=== PATIENT | male | born 1970 | race Caucasian/White ===

== ENCOUNTER 2016-07-13 12:11 | Emergency (ER) | payer BC ==
[~2016-07-13] VITALS: Ht 180.3 cm; Wt 93.7 kg
[2016-07-13 12:15] VITALS: TEMP 36.7; Ht 180.3 cm; Wt 93.7 kg
[2016-07-13] MEDS ORDERED: SODIUM CHLORIDE 0.9% 1000ML 1,000 ML IV STA (12:53)
[2016-07-13 13:01] LABS: BASO % 0.2 %; BASO ABS # 0.02 K/uL (0-0.2); COMPLETE YES; EOS % 1.4 %; HEMATOCRIT 44.1 % (42-52); IG% 0.4 %; LYMPH % 16.8 %; LYMPH ABS # 2.23 K/uL (1.2-3.4); MEAN CELL VOLUME 90.9 fL (80-100); MEAN CORPUSCULAR HEMOGLOBIN 32.8 pg (25-34); MEAN CORPUSCULAR HGB CONC 36.1 g/dl (32-36); MEAN PLATELET VOLUME 9.5 fL (7.4-10.4); MONO % 7.4 %; NEUT % 73.8 %; PLATELET COUNT 289 K/uL (130-400); RED BLOOD COUNT 4.85 M/uL (4.7-6.1); WHITE BLOOD COUNT 13.24 K/uL (4.8-10.8)
[2016-07-13 13:11] LABS: BUN/CREATININE RATIO 16.6 (10-20); CALCIUM 9.1 mg/dl (8.5-10.1); CREATININE 0.82 mg/dl (0.60-1.40); POTASSIUM 4.1 mmol/L (3.5-5.1)
[2016-07-13 13:19] LABS: ALB/GLOB RATIO 1.1 (0.9-2)
[2016-07-13 13:29] VITALS: O2SAT 97
[2016-07-13 13:39] LABS: URINE APPEARANCE CLEAR (CLEAR); URINE BILIRUBIN NEG (NEG); URINE COLOR YELLOW; URINE NITRITE NEG (NEG); UROBILINOGEN NEG (NEG); ZZUR CULT IF INDIC CLEAN CATCH NO
[2016-07-13 13:42] LABS: MANUAL MICROSCOPIC REQUIRED? NO; REVIEW REQ? NO
[2016-07-13] MEDS ORDERED: OPTIRAY 320 IV PRN (16:30)
--- NOTE | 2016-07-13 16:51 | DIAGNOSTIC IMAGING REPORT ---
ABDOMEN AND PELVIS CT WITH IV AND ORAL CONTRAST CT DOSE: 899.59 mGycm HISTORY: Lower abdominal pain, urinary symptoms TECHNIQUE: Multiaxial CT images of the abdomen and pelvis were performed following the use of intravenous and oral contrast. COMPARISON STUDY: None. FINDINGS: Mild to moderate thickening within the proximal sigmoid colon with associated pericolonic fat stranding. This is consistent with acute diverticulitis. No perforation or abscess. Slightly bulbous appendix which is gas filled. No periappendiceal fat stranding to suggest acute appendicitis. The appendix measures up to 9 mm in diameter. The bladder is unremarkable. The lung bases are clear. No pneumoperitoneum. No pneumatosis. No suspicious lytic or blastic osseous lesions. The liver, spleen, adrenal glands, pancreas, and gallbladder are unremarkable. No hydronephrosis. A 9 mm hypodense lesion within the left kidney is too small to characterize. No retroperitoneal lymphadenopathy. No evidence for bowel obstruction. IMPRESSION: 1. Acute sigmoid diverticulitis. No perforation or abscess at this time. 2. Slightly bulbous appendix which is gas filled. No periappendiceal fat stranding to suggest acute appendicitis. Electronically signed by: Kyle Schofield M.D. 07/13/2016 4:49 PM Dictated Date/Time: 07/13/2016 4:45 PM
[2016-07-13] MEDS ORDERED: AMOXICILLIN/CLAVULANATE TAB 875 MG TAB PO STA (17:36)
[2016-07-13] MEDS ORDERED: AMOX875T PO (17:38)
[2016-07-13 17:42] VITALS: BP 149/79; PULSE 63; O2SAT 98
--- NOTE | 2016-07-13 17:42 | EMERGENCY ROOM VISIT NOTE ---
History First contact with patient: 12:34 Chief Complaint: ABDOMINAL PAIN Stated Complaint: LOWER ABDOMINAL PAIN Nursing Triage Summary: Pt c/o low mid abdominal pain intermittently x 3 weeks but has been constant the last 4 days. Urinary symptoms including urgency and frequency and pain. Pt denies n/v/d/constipation but states he has been having BM like he should be. History of Present Illness The patient is a 46 year old male who presents to the Emergency Room via private vehicle with complaints of "lower abdominal pain". The patient states that he has had 4 weeks of suprapubic abdominal pain that comes and goes, and is off and on the left side. He notes the pain is worse with sitting. He notes that he is also been urinating more frequently and urgently. He also notes pain in the abdomen with urination. He notes that he did have diarrhea earlier in the week, but has subsided slightly. He notes that the pain persists. His bowel movements are still slightly irregular. He has never had this before. He rates the pain as a 3-4/10. He notes that the pain will come in waves. He denies any blood in the urine, fevers, chills, nausea, vomiting, chest pain, shortness of breath. He notes that his urine appears to be cloudy. He denies chance of STD or STI. He notes that he is in a monogamous relationship with the same female for many years. He denies any rectal bleeding. Review of Systems A complete 10-point Review of Systems was discussed with the patient, with pertinent positives and negatives listed in the History of Present Illness. All remaining Review of Systems questions can be considered negative unless otherwise specified. Past Medical/Surgical History Migraine headaches, allergies, skin problems, bronchitis, pneumonia, urinary problems Family History Heart disease, cancer Social History Smoking Status: Current Every Day Smoker Housing Status: lives with family Social History: Patient is currently employed, and admits to tobacco and alcohol use. Current/Historical Medications Scheduled Amoxicillin & Pot Clavulanate (Augmentin 875-125 mg), 1 TAB PO BID Allergies Coded Allergies: BEE STING (Unverified Allergy, Unknown, ., 07/13/16) Physical Exam Vital Signs Date Time Temp Pulse Resp B/P Pulse Ox O2 Delivery O2 Flow Rate FiO2 07/13/16 17:42 63 18 149/79 98 Room Air 07/13/16 16:59 74 17 117/69 99 Room Air 07/13/16 15:31 69 16 142/98 98 Room Air 07/13/16 14:53 73 18 136/83 96 Room Air 07/13/16 13:40 78 18 121/41 97 Room Air 07/13/16 13:29 97 Room Air 07/13/16 12:15 36.7 100 18 130/91 97 Room Air Pain Rating (0-10): 4.0 Physical Exam VITAL SIGNS - Vital signs and nursing notes were reviewed. Patient is afebrile , normotensive, so tachycardic at a rate of 100 bpm and is saturating well on room air 97%. GENERAL -46-year-old male appearing his stated age who is in no acute distress. Communicates well with provider and answers questions appropriately. SKIN - Without rashes. No petechial rashes. HEAD - NC/AT. LUNGS - Chest wall symmetric without accessory muscle use, intercostals retractions, or central cyanosis. Normal vesicular breath sounds CTA B/L. No wheezes, rales, or rhonchi appreciated. CARDIAC - RRR with S1/S2. No murmur, rubs, or gallops appreciated. ABDOMEN - Abdominal contour without pulsations or visible masses. BS normoactive all four quadrants. There is left lower quadrant and suprapubic tenderness. Tenderness is most appreciable on the left lower quadrant to suprapubic region. No palpable masses, hepatosplenomegaly, or ascites noted. : With patient consent, genitalia exam was performed. Scrotum and testes are unremarkable. No evidence of hernia. Medical Decision & Procedures ER Provider Diagnostic Interpretation: ABDOMEN AND PELVIS CT WITH IV AND ORAL CONTRAST CT DOSE: 899.59 mGycm HISTORY: Lower abdominal pain, urinary symptoms TECHNIQUE: Multiaxial CT images of the abdomen and pelvis were performed following the use of intravenous and oral contrast. COMPARISON STUDY: None. FINDINGS: Mild to moderate thickening within the proximal sigmoid colon with associated pericolonic fat stranding. This is consistent with acute diverticulitis. No perforation or abscess. Slightly bulbous appendix which is gas filled. No periappendiceal fat stranding to suggest acute appendicitis. The appendix measures up to 9 mm in diameter. The bladder is unremarkable. The lung bases are clear. No pneumoperitoneum. No pneumatosis. No suspicious lytic or blastic osseous lesions. The liver, spleen, adrenal glands, pancreas, and gallbladder are unremarkable. No hydronephrosis. A 9 mm hypodense lesion within the left kidney is too small to characterize. No retroperitoneal lymphadenopathy. No evidence for bowel obstruction. IMPRESSION: 1. Acute sigmoid diverticulitis. No perforation or abscess at this time. 2. Slightly bulbous appendix which is gas filled. No periappendiceal fat stranding to suggest acute appendicitis. Electronically signed by: Kyle Schofield M.D. 07/13/2016 4:49 PM Dictated Date/Time: 07/13/2016 4:45 PM Laboratory Results 07/13/16 12:30 Red Blood Count 4.85, Mean Corpuscular Volume 90.9, Mean Corpuscular Hemoglobin 32.8, Mean Corpuscular Hemoglobin Concent 36.1, Mean Platelet Volume 9.5, Neutrophils (%) (Auto) 73.8, Lymphocytes (%) (Auto) 16.8, Monocytes (%) (Auto) 7.4, Eosinophils (%) (Auto) 1.4, Basophils (%) (Auto) 0.2, Neutrophils # (Auto) 9.77, Lymphocytes # (Auto) 2.23, Monocytes # (Auto) 0.98, Eosinophils # (Auto) 0.19, Basophils # (Auto) 0.02 07/13/16 12:30 Test 07/13/16 12:30 07/13/16 12:45 07/13/16 13:20 White Blood Count 13.24 K/uL (4.8-10.8) Red Blood Count 4.85 M/uL (4.7-6.1) Hemoglobin 15.9 g/dL (14.0-18.0) Hematocrit 44.1 % (42-52) Mean Corpuscular Volume 90.9 fL (80-100) Mean Corpuscular Hemoglobin 32.8 pg (25-34) Mean Corpuscular Hemoglobin Concent 36.1 g/dl (32-36) Platelet Count 289 K/uL (130-400) Mean Platelet Volume 9.5 fL (7.4-10.4) Neutrophils (%) (Auto) 73.8 % Lymphocytes (%) (Auto) 16.8 % Monocytes (%) (Auto) 7.4 % Eosinophils (%) (Auto) 1.4 % Basophils (%) (Auto) 0.2 % Neutrophils # (Auto) 9.77 K/uL (1.4-6.5) Lymphocytes # (Auto) 2.23 K/uL (1.2-3.4) Monocytes # (Auto) 0.98 K/uL (0.11-0.59) Eosinophils # (Auto) 0.19 K/uL (0-0.5) Basophils # (Auto) 0.02 K/uL (0-0.2) RDW Standard Deviation 43.1 fL (36.4-46.3) RDW Coefficient of Variation 13.1 % (11.5-14.5) Immature Granulocyte % (Auto) 0.4 % Immature Granulocyte # (Auto) 0.05 K/uL (0.00-0.02) Anion Gap 7.0 mmol/L (3-11) Est Creatinine Clear Calc Drug Dose 134.4 ml/min Estimated GFR () 124.6 Estimated GFR (Non- 107.5 BUN/Creatinine Ratio 16.6 (10-20) Calcium Level 9.1 mg/dl (8.5-10.1) Total Bilirubin 0.6 mg/dl (0.2-1) Aspartate Amino Transf (AST/SGOT) 17 U/L (15-37) Alanine Aminotransferase (ALT/SGPT) 44 U/L (12-78) Alkaline Phosphatase 79 U/L (45-117) Total Protein 7.7 gm/dl (6.4-8.2) Albumin 4.1 gm/dl (3.4-5.0) Globulin 3.6 gm/dl (2.5-4.0) Albumin/Globulin Ratio 1.1 (0.9-2) Lipase 183 U/L (73-393) Urine Color YELLOW Urine Appearance CLEAR (CLEAR) Urine pH 5.0 (4.5-7.5) Urine Specific [place] 1.020 (1.000-1.030) Urine Protein NEG (NEG) Urine Glucose (UA) NEG (NEG) Urine Ketones NEG (NEG) Urine Occult Blood NEG (NEG) Urine Nitrite NEG (NEG) Urine Bilirubin NEG (NEG) Urine Urobilinogen NEG (NEG) Urine Leukocyte Esterase NEG (NEG) Medications Administered Medications (Trade) Dose Ordered Sig/Glory Route Start Time Stop Time Status Last Admin Dose Admin Sodium Chloride (Nss 1000ml) 1,000 ml @ 200 mls/hr Q5H STAT IV 07/13/16 12:53 07/13/16 17:52 DC 07/13/16 13:19 200 MLS/HR Amoxicillin/ Clavulanate Potassium (Augmentin Tab) 875 mg ONE STAT PO 07/13/16 17:36 07/13/16 17:37 DC 07/13/16 17:48 875 MG Medical Decision Patient was seen and evaluated as above. He presents to us with suprapubic abdominal pain, urinary frequency and urgency with cloudy urine. Examination reveals suprapubic tenderness and left lower quadrant tenderness. Genitalia exam was unremarkable. There is concern for intra-abdominal etiologies therefore a CT scan of the abdomen and pelvis with IV and oral contrast were obtained. He requested nothing for pain. He was given 1 L of normal saline at a rate of 200 mL's per hour. CBC reveals slightly this ptosis at 13.24, with neutrophil elevation. No anemia. Chloride was elevated at 108. CMP otherwise unremarkable. Lipase is normal. Urine is unremarkable. Gonorrhea including a swab was obtained secondary to the cloudy urine, and urinary complaints. This is pending. CT scan reveals acute sigmoid diverticulitis, and the 9 mm renal lesion was discussed with the patient. He is to follow up regarding this. There is also what appears to be slight dilation of the appendix, but he does not have any evidence of diagnosable appendicitis on CT or clinical exam. He' ll be provided with Augmentin, with the first dose given here and a 10 day supply symptoms pharmacy. He was instructed to follow-up with his family doctor , who is Dr. Lynch. He is to follow-up with Dr. Lynch regarding the CT scan. He was educated upon management, educated upon worrisome symptoms which to return and was discharged home in good condition. In the evaluation and treatment of this patient the following differential diagnoses were entertained: STI, diverticulitis, epiploic appendicitis, mesenteric adenitis, appendicitis, hernia, testicular torsion, epididymitis, urethritis, among others. Impression Primary Impression: Sigmoid diverticulitis Departure Information Dispostion Home / Self-Care Condition GOOD Prescriptions Amoxicillin & Pot Clavulanate (Augmentin 875-125 mg) 1 Tab Tab 1 TAB PO BID for 10 Days, #20 TAB Prov: Kwadwo Rubi PA-C 07/13/16 Referrals No Doctor, Assigned (PCP) Patient Instructions My [facility] Additional Instructions You have been seen in the emergency Department for acute sigmoid diverticulitis. Results of your imaging also reveal a 9 mm lesion in the left kidney. Please follow up with your family doctor for this. Please given a call soon as possible schedule follow-up regarding today's visit. You have been prescribed Augmentin 1 tablet twice daily for 10 days. This is an antibiotic. Please start with a bland diet as we discussed. Please drink plenty of water. Please return to emergency department with any new/concerning symptoms, worsening of your pain or any concerns.
[2016-07-16 23:54] LABS: CHLAMYDIA TRACH RNA*** NOT DETECTED (NOT DETECTED); GC (NEIS GONORRHOEAE)RNA** NOT DETECTED (NOT DETECTED)
== END 2016-07-13 18:07 | disposition home or self-care (01) ==
LOC: C.EDB 12:13
DX: K57.32 Diverticulitis of large intestine without perforation or abscess without bleeding (principal); R35.0 Frequency of micturition; R39.15 Urgency of urination; Z87.01 Personal history of pneumonia (recurrent); Z87.09 Personal history of other diseases of the respiratory system; Z87.448 Personal history of other diseases of urinary system; Z82.49 Family history of ischemic heart disease and other diseases of the circulatory system; F17.200 Nicotine dependence, unspecified, uncomplicated

== ENCOUNTER 2017-05-07 07:28 | Emergency (ER) | payer BC ==
[~2017-05-07] VITALS: Ht 180.3 cm; Wt 94.0 kg
[2017-05-07 07:30] VITALS: TEMP 36.7; Ht 180.3 cm; Wt 94.0 kg
[2017-05-07] MEDS ORDERED: SODIUM CHLORIDE 0.9% 1000ML 1,000 ML IV STA (07:41)
[2017-05-07] MEDS ORDERED: KETOROLAC TROMETHAMINE 30 MG/ML VIAL IV STA (07:41)
[2017-05-07] MEDS ORDERED: ONDANSETRON INJ 2 MG/ML 2 ML VIAL IV STA (07:41)
[2017-05-07] MEDS ORDERED: AMPICILLIN/SULBACTAM SOD INJ 3,000 MG in SODIUM CHLORIDE 0.9% 100ML 100 ML IV ONE (07:45)
[2017-05-07] MEDS ORDERED: MISCCAP80 PO (07:45)
[2017-05-07 08:14] LABS: BASO % 0.2 %; BASO ABS # 0.03 K/uL (0-0.2); EOS % 1.4 %; EOS ABS # 0.24 K/uL (0-0.5); HEMATOCRIT 43.8 % (42-52); HEMOGLOBIN 15.4 g/dL (14.0-18.0); IG# 0.08 K/uL (0.00-0.02); LYMPH % 10.8 %; LYMPH ABS # 1.81 K/uL (1.2-3.4); MEAN CELL VOLUME 90.5 fL (80-100); MEAN CORPUSCULAR HEMOGLOBIN 31.8 pg (25-34); MEAN CORPUSCULAR HGB CONC 35.2 g/dl (32-36); MEAN PLATELET VOLUME 9.3 fL (7.4-10.4); MONO % 10.5 %; MONO ABS # 1.77 K/uL (0.11-0.59); NEUT % 76.6 %; NEUT ABS # 12.87 K/uL (1.4-6.5); PLATELET COUNT 274 K/uL (130-400); RED CELL DISTRIBUTION WIDTH CV 13.5 % (11.5-14.5); RED CELL DISTRIBUTION WIDTH SD 44.9 fL (36.4-46.3)
[2017-05-07 08:32] LABS: ALBUMIN 3.5 gm/dl (3.4-5.0); CALCIUM 9.1 mg/dl (8.5-10.1); CREATININE 0.92 mg/dl (0.60-1.40); POTASSIUM 4.3 mmol/L (3.5-5.1)
[2017-05-07 08:35] LABS: TOTAL PROTEIN 7.5 gm/dl (6.4-8.2)
[2017-05-07] MEDS ORDERED: OPTIRAY 320 IV PRN (11:15)
[2017-05-07] MEDS ORDERED: METR-163 PO (14:14)
[2017-05-07] MEDS ORDERED: CIPR-255 PO (14:14)
--- NOTE | 2017-05-07 14:15 | EMERGENCY ROOM VISIT NOTE ---
History Report prepared by El: Dru Smith Under the Supervision of: Dr. Stanislaw Nunes D.O. First contact with patient: 07:38 Chief Complaint: ABDOMINAL PAIN Stated Complaint: SEVERE ABDOMINAL PAIN LEFT SIDE Nursing Triage Summary: lower abd pain feels like diverticulitis again History of Present Illness The patient is a 47 year old male who presents to the Emergency Room with complaints of severe and constant abdominal pain that began yesterday. The patient states that his abdominal pain is localized to the left lower quadrant and seems to be worsened by drinking water. His pain is improved by laying flat. He also notes being nauseous, and that he has been having difficulty producing bowel movements. He has not vomited. The patient has a history of diverticulitis and notes that this episode feels similar to what he has experienced in the past. Source of History: patient Onset: Yesterday Position: abdomen (LLQ) Symptom Intensity: severe Timing: constant Modifying Factors (Worsening): drinking (water) Modifying Factors (Relieving): other (lying flat) Associated Symptoms: + nausea, No vomiting Review of Systems See HPI for pertinent positives & negatives. A total of 10 systems reviewed and were otherwise negative. Past Medical & Surgical Sigmoid diverticulitis Family History Cancer Hypertension Social History Smoking Status: Current Every Day Smoker Marital Status: Housing Status: lives with family Current/Historical Medications Scheduled Ciprofloxacin Hcl (Cipro), 500 MG PO BID Metronidazole (Flagyl), 500 MG PO TID Probiotic Product (Probiotic), 2 CAP PO DAILY Allergies Coded Allergies: BEE STING (Unverified Allergy, Unknown, ., 05/07/17) Physical Exam Vital Signs Date Time Temp Pulse Resp B/P (MAP) Pulse Ox O2 Delivery O2 Flow Rate FiO2 05/07/17 12:46 88 20 136/78 98 05/07/17 11:25 76 18 136/86 97 Room Air 05/07/17 10:19 78 14 135/71 98 Room Air 05/07/17 09:03 82 16 152/84 98 Room Air 05/07/17 07:30 36.7 102 18 143/96 99 Physical Exam CONSTITUTIONAL/VITAL SIGNS: Reviewed / noted above. GENERAL: Non-toxic in appearance. INTEGUMENTARY: Warm, dry, and [place]. HEAD: Normocephalic. EYES: without scleral icterus or trauma. ENT/OROPHARYNX: clear and moist. LYMPHADENOPATHY/NECK: Is supple without lymphadenopathy or meningismus. RESPIRATORY: Lungs clear and equal. CARDIOVASCULAR: Regular rate and rhythm. GI/ABDOMEN: Soft The abdomen is tender to the left lower quadrant. No organomegaly or pulsatile mass. No rebound or guarding. Normal bowel sounds. EXTREMITIES: Warm and well perfused. BACK: No CVA tenderness. NEUROLOGICAL: Intact without focal deficits. PSYCHIATRIC: normal affect. MUSCULOSKELETAL: Normally developed with good muscle tone. Medical Decision & Procedures ER Provider Diagnostic Interpretation: Radiology results as stated below per my review and radiologist interpretation: CT OF THE ABDOMEN AND PELVIS WITH CONTRAST CLINICAL HISTORY: Left-sided abdominal pain. COMPARISON STUDY: CT of the abdomen and pelvis July 13, 2016. TECHNIQUE: Following IV administration of 94 mL of [id number]-320, axial images of the abdomen and pelvis were obtained from the lung bases to the proximal femurs. Images were reviewed in the axial, sagittal, and coronal planes. IV contrast was administered without complication. A dose lowering technique was utilized adhering to the principles of ALARA. Oral contrast was administered. CT DOSE: 592.74 mGy.cm FINDINGS: The liver, spleen, adrenal glands and pancreas are normal. Note is made of a 9 mm left renal cyst. A 3 mm hypodense lesion arising from the lower pole of the left kidney is too small to characterize. There is no hydronephrosis. There is no biliary or pancreatic ductal dilatation. Note is made of extensive diverticulosis of the descending colon and sigmoid colon. There is moderate wall thickening of the distal descending colon with an inflamed diverticulum of the anterior aspect of the distal descending colon. There is moderate adjacent inflammation. There is no free air or abscess. A few locules of gas adjacent to the colon are likely within diverticula. Trace fluid within pelvis is noted. Appendix is at the upper limits of normal for caliber. Oral contrast. The appendix is likely within normal limits. There are no suspicious osseous lesions. No lymphadenopathy. IMPRESSION: Acute diverticulitis of the distal descending colon. Moderate focal wall thickening and moderate pericolonic infiltration with no free air or abscess. Trace fluid within the pelvis. Electronically signed by: Christian Pulido M.D. 05/07/2017 2:17 PM Dictated Date/Time: 05/07/2017 2:10 PM Laboratory Results 05/07/17 08:00 Red Blood Count 4.84, Mean Corpuscular Volume 90.5, Mean Corpuscular Hemoglobin 31.8, Mean Corpuscular Hemoglobin Concent 35.2, Mean Platelet Volume 9.3, Neutrophils (%) (Auto) 76.6, Lymphocytes (%) (Auto) 10.8, Monocytes (%) (Auto) 10.5, Eosinophils (%) (Auto) 1.4, Basophils (%) (Auto) 0.2, Neutrophils # (Auto ) 12.87, Lymphocytes # (Auto) 1.81, Monocytes # (Auto) 1.77, Eosinophils # (Auto ) 0.24, Basophils # (Auto) 0.03 05/07/17 08:00 Test 05/07/17 08:00 05/07/17 09:45 White Blood Count 16.80 K/uL (4.8-10.8) Red Blood Count 4.84 M/uL (4.7-6.1) Hemoglobin 15.4 g/dL (14.0-18.0) Hematocrit 43.8 % (42-52) Mean Corpuscular Volume 90.5 fL (80-100) Mean Corpuscular Hemoglobin 31.8 pg (25-34) Mean Corpuscular Hemoglobin Concent 35.2 g/dl (32-36) Platelet Count 274 K/uL (130-400) Mean Platelet Volume 9.3 fL (7.4-10.4) Neutrophils (%) (Auto) 76.6 % Lymphocytes (%) (Auto) 10.8 % Monocytes (%) (Auto) 10.5 % Eosinophils (%) (Auto) 1.4 % Basophils (%) (Auto) 0.2 % Neutrophils # (Auto) 12.87 K/uL (1.4-6.5) Lymphocytes # (Auto) 1.81 K/uL (1.2-3.4) Monocytes # (Auto) 1.77 K/uL (0.11-0.59) Eosinophils # (Auto) 0.24 K/uL (0-0.5) Basophils # (Auto) 0.03 K/uL (0-0.2) RDW Standard Deviation 44.9 fL (36.4-46.3) RDW Coefficient of Variation 13.5 % (11.5-14.5) Immature Granulocyte % (Auto) 0.5 % Immature Granulocyte # (Auto) 0.08 K/uL (0.00-0.02) Anion Gap 8.0 mmol/L (3-11) Est Creatinine Clear Calc Drug Dose 118.7 ml/min Estimated GFR () 116.0 Estimated GFR (Non- 100.1 BUN/Creatinine Ratio 13.2 (10-20) Calcium Level 9.1 mg/dl (8.5-10.1) Total Bilirubin 0.6 mg/dl (0.2-1) Direct Bilirubin 0.1 mg/dl (0-0.2) Aspartate Amino Transf (AST/SGOT) 11 U/L (15-37) Alanine Aminotransferase (ALT/SGPT) 28 U/L (12-78) Alkaline Phosphatase 83 U/L (45-117) Total Protein 7.5 gm/dl (6.4-8.2) Albumin 3.5 gm/dl (3.4-5.0) Lipase 117 U/L (73-393) Urine Color YELLOW Urine Appearance CLEAR (CLEAR) Urine pH 5.5 (4.5-7.5) Urine Specific [place] 1.014 (1.000-1.030) Urine Protein NEG (NEG) Urine Glucose (UA) NEG (NEG) Urine Ketones NEG (NEG) Urine Occult Blood NEG (NEG) Urine Nitrite NEG (NEG) Urine Bilirubin NEG (NEG) Urine Urobilinogen NEG (NEG) Urine Leukocyte Esterase NEG (NEG) Urine WBC (Auto) 1-5 /hpf (0-5) Urine RBC (Auto) 0-4 /hpf (0-4) Urine Hyaline Casts (Auto) 1-5 /lpf (0-5) Urine Epithelial Cells (Auto) 0-5 /lpf (0-5) Urine Bacteria (Auto) NEG (NEG) Laboratory results as stated above per my review. Medications Administered Medications (Trade) Dose Ordered Sig/Glory Route Start Time Stop Time Status Last Admin Dose Admin Sodium Chloride 1,000 ml @ 999 mls/hr Q1H1M STAT IV 05/07/17 07:41 05/07/17 08:41 DC 05/07/17 08:10 999 MLS/HR Ondansetron HCl (Zofran Inj) 4 mg NOW STAT IV 05/07/17 07:41 05/07/17 07:44 DC 05/07/17 08:12 4 MG Ketorolac Tromethamine (Toradol Inj) 30 mg NOW STAT IV 05/07/17 07:41 05/07/17 07:44 DC 05/07/17 08:12 30 MG Ampicillin Sodium/ Sulbactam Sodium 3000 mg/Sodium Chloride 108 ml @ 200 mls/hr ONE ONCE IV 05/07/17 07:45 05/07/17 08:17 DC 05/07/17 09:03 200 MLS/HR ED Course 0739: Previous medical records were reviewed. The patient was evaluated in room B3B. A complete history and physical examination was performed. 0741: Ordered Toradol 30 mg IV, Zofran 4 mg IV, Sodium Chloride 1000 mL @ 999 mL /hr IV. 0745: Ordered Ampicillin Sodium/Sulbactam Sodium 108 ML @ 200 mL/hr IV. 1417: On reevaluation, the patient is resting in bed. I discussed the results and findings with the patient. He verbalized agreement of the treatment plan. The patient was discharged home. Medical Decision Differential considered: pancreatitis, hepatitis, or acute cholecystitis, AAA, UTI, pyelonephritis, kidney stones, appendicitis, diverticulitis, shingles, bowel obstruction mesenteric ischemia, intussusception,hernia, testicular torsion, ovarian torsion, ruptured ovarian cyst,ectopic , . This is a 47-year-old male who presents to the ED with a chief complaint of left lower quadrant abdominal pain started yesterday. He reports a history of diverticulitis. The symptoms today are similar to that. His vital signs reveal a slight hypertension and mild tachycardia. He does have tenderness to left lower quadrant on exam. He did report a little diarrhea but no nausea vomiting. No fevers. White blood cells 16.8. Complete metabolic panel was unremarkable. Urine did not show infection. CT scan reveals diverticulitis. The patient was treated with IV fluids, IV Zosyn, Zofran and IV Toradol. He was started on Cipro and Flagyl. He is felt to be stable for discharge. Medication Reconcilliation Current Medication List: was personally reviewed by me Blood Pressure Screening Patient's blood pressure: Elevated blood pressure Impression Primary Impression: Diverticulitis large intestine Scribe Attestation The scribe's documentation has been prepared under my direction and personally reviewed by me in its entirety. I confirm that the note above accurately reflects all work, treatment, procedures, and medical decision making performed by me. Departure Information Dispostion Home / Self-Care Prescriptions Metronidazole (Flagyl) 500 Mg Tab 500 MG PO TID, #30 TAB Prov: Stanislaw Nunes D.O. 05/07/17 Ciprofloxacin Hcl (CIPRO) 500 Mg Tab 500 MG PO BID, #20 TAB Prov: Stanislaw Nunes D.O. 05/07/17 Referrals Matthew Escoto M.D. (PCP) Patient Instructions Diverticulitis Dc, My [facility] Additional Instructions Cipro and Flagyl as prescribed. Liquid diet for the next several days until symptoms started improved. Follow-up with your doctor for further care and evaluation in 3-4 days. Return to the emergency department for worsening or new symptoms or any concerns. You have been examined and treated today on an emergency basis only. This is not a substitute for, or an effort to provide, complete comprehensive medical care. It is impossible to recognize and treat all injuries or illnesses in a single emergency department visit. It is therefore important that you follow up closely with your doctor. Call as soon as possible for an appointment.
--- NOTE | 2017-05-07 14:19 | DIAGNOSTIC IMAGING REPORT ---
CT OF THE ABDOMEN AND PELVIS WITH CONTRAST CLINICAL HISTORY: Left-sided abdominal pain. COMPARISON STUDY: CT of the abdomen and pelvis July 13, 2016. TECHNIQUE: Following IV administration of 94 mL of Optiray-320, axial images of the abdomen and pelvis were obtained from the lung bases to the proximal femurs. Images were reviewed in the axial, sagittal, and coronal planes. IV contrast was administered without complication. A dose lowering technique was utilized adhering to the principles of ALARA. Oral contrast was administered. CT DOSE: 592.74 mGy.cm FINDINGS: The liver, spleen, adrenal glands and pancreas are normal. Note is made of a 9 mm left renal cyst. A 3 mm hypodense lesion arising from the lower pole of the left kidney is too small to characterize. There is no hydronephrosis. There is no biliary or pancreatic ductal dilatation. Note is made of extensive diverticulosis of the descending colon and sigmoid colon. There is moderate wall thickening of the distal descending colon with an inflamed diverticulum of the anterior aspect of the distal descending colon. There is moderate adjacent inflammation. There is no free air or abscess. A few locules of gas adjacent to the colon are likely within diverticula. Trace fluid within pelvis is noted. Appendix is at the upper limits of normal for caliber. Oral contrast. The appendix is likely within normal limits. There are no suspicious osseous lesions. No lymphadenopathy. IMPRESSION: Acute diverticulitis of the distal descending colon. Moderate focal wall thickening and moderate pericolonic infiltration with no free air or abscess. Trace fluid within the pelvis. Electronically signed by: Christian Pulido M.D. 05/07/2017 2:17 PM Dictated Date/Time: 05/07/2017 2:10 PM
[2017-05-07 14:44] VITALS: BP 118/53; PULSE 94; O2SAT 96
== END 2017-05-07 14:45 | disposition home or self-care (01) ==
LOC: C.EDB 07:30
DX: K57.32 Diverticulitis of large intestine without perforation or abscess without bleeding (principal); Z80.9 Family history of malignant neoplasm, unspecified; Z82.49 Family history of ischemic heart disease and other diseases of the circulatory system; F17.210 Nicotine dependence, cigarettes, uncomplicated; Z91.030 Bee allergy status

== ENCOUNTER 2019-03-27 09:38 | Inpatient (IN) ==
[2019-03-27] MEDS ORDERED: SODIUM CHLORIDE 0.9% 1000ML 1,000 ML IV SCH (10:15)
--- NOTE | 2019-03-27 10:18 | Emergency Department Note ---
ED Visit Note This patient was seen in concert with Dr Meyer and we discussed and agreed upon the history, physical, assessment, and plan. See attending's note for details. . Resident Activity Tracking Resident Involvement: Resident Care Provided Care Provided: Adult ED
[2019-03-27 10:40] LABS: Hematocrit (blood only) 44.2 % (42-52); Hemoglobin 15.2 g/dL (14.0-18.0); Mean Corpuscular Hemoglobin 31.9 pg (25-34); Mean Corpuscular Hgb Conc 34.4 g/dL (32-36); Mean Corpuscular Volume 92.9 fL (80-100); Mean Platelet Volume 9.5 fL (7.4-10.4); Nucleated RBC # (auto) 0.02 K/uL (0-0); Nucleated RBC % (auto) 0.1 %; Platelet Count 353 K/uL (130-400); RDW Coefficient of Variation 13.1 % (11.5-14.5); RDW Standard Deviation 44.6 fL (36.4-46.3); Red Blood Count 4.76 M/uL (4.7-6.1); White Blood Count 27.27 K/uL (4.8-10.8)
[2019-03-27] MEDS ORDERED: ALBUT/IPRATROP 3MG/0.5MG NEB 3 ML VIAL NEB STA (10:52)
--- NOTE | 2019-03-27 10:53 | XRay Report ---
SINGLE VIEW CHEST CLINICAL HISTORY: Cough. FINDINGS: An AP, portable, upright chest radiograph is obtained. No prior studies are available for c omparison at the time of dictation. The examination is degraded by portable technique, apical lordot ic positioning, and patient rotation. The heart is top normal for projection. The lungs and pleural s paces are clear. No pneumothorax is seen. There is chronic posttraumatic deformity of the right clavi karen. IMPRESSION: No active disease in the chest. ACT 112: Negative or not required by law. Electronically signed by: Louie Hong M.D. 03/27/2019 10:51 AM
[2019-03-27 10:58] LABS: Albumin Level 3.2 gm/dl (3.4-5.0); BUN Creatinine Ratio 16.4 (10-20); Calcium 9.4 mg/dl (8.5-10.1); Est GFR (African American) 115.9; Potassium 4.1 mmol/L (3.5-5.1)
[2019-03-27 10:59] LABS: Appearance Urine Clear (Clear); Bilirubin Urine Negative (Negative); Blood Urine Negative (Negative); Color Urine Yellow; Glucose Urine UA Negative (Negative); Ketones Urine Negative (Negative); Leukocyte Esterase Urine Negative (Negative); Nitrite Urine Negative (Negative); Protein Urine Negative (Negative); Specific Gravity Urine 1.027 (1.000-1.030); Urobilinogen Urine Negative (Negative); pH Urine 6.5 (4.5-7.5)
[2019-03-27 11:00] LABS: Albumin Globulin Ratio 0.8 (0.9-2); Bilirubin,Total 0.8 mg/dl (0.2-1); Globulin 4.2 gm/dl (2.5-4.0); Total Protein 7.4 gm/dl (6.4-8.2)
[2019-03-27 11:04] LABS: Basophils # (auto) 0.03 K/uL (0-0.2); Basophils % (auto) 0.1 %; Eosinophils # (auto) 0.29 K/uL (0-0.5); Eosinophils % (auto) 1.1 %; Immature Granulocytes # (auto) 0.26 K/uL (0.00-0.02); Lymphocytes # (auto) 2.68 K/uL (1.2-3.4); Lymphocytes % (auto) 9.8 %; Monocytes # (auto) 1.33 K/uL (0.11-0.59); Monocytes % (auto) 4.9 %; Neutrophils # (auto) 22.68 K/uL (1.4-6.5); Neutrophils % (auto) 83.1 %
[2019-03-27] MEDS ORDERED: OPTIRAY 320 125ml IV PRN (11:46)
--- NOTE | 2019-03-27 12:13 | CT Scan Report ---
CT angio chest PE protocol CT DOSE: 603.19 mGy.cm HISTORY: 49 years-old Male with PE. Acute cough with fever and chills TECHNIQUE: Multiple CTA images of the chest were obtained after the intravenous administration of 120 ml Optiray 320. Coronal and sagittal MIPS were obtained from the axial data set and were submitted for review. All measurements were obtained according to NASCET criteria. A dose lowering technique w as utilized adhering to the principles of ALARA. COMPARISON: Chest radiograph of same day, CT abdomen pelvis 05/07/2017 FINDINGS: CTA: The heart is upper limits of normal in size. No pericardial effusion. Thoracic aorta is normal in cou rse and caliber without aneurysm or dissection. There is patency of the imaged great vessels. The pul monary arterial tree is opacified to the level of the proximal subsegmental branches and demonstrates no filling defects to suggest pulmonary thromboembolic disease. The distal subsegmental branches wit hin the level of the lung bases are not well opacified. CT CHEST: Unremarkable thyroid. Enlarged mediastinal lymph nodes include AP window lymph nodes measuring up to 12 mm in short axis. Enlarged hilar lymph nodes include a 2.6 x 1.6 cm right hilar lymph node. Subcar inal lymph nodes measure up to 12 mm in short axis. There is no pneumothorax or pleural effusion. Sub centimeter thin-walled cyst of the lingula, image 206 series 5. Patchy multifocal groundglass densiti es are seen a multilobar distribution bilaterally. Mild reticulonodular densities of the right middle lobe and lingula. The millimeters solid nodule with mild adjacent groundglass density involves the r ight upper lobe, image 225 series 5. 6 mm solid nodular opacity of the right upper lobe, image 194 se analisa 5. 6 mm nodular opacity of the right upper lobe on image 216 series 5 suggests probable lymph no de. Central airways are patent. Suggested hepatic steatosis. Cyst of the interpolar left kidney, partially imaged. Mild nonspecific d istal esophageal wall thickening. Opacified collateral vessels of the right chest wall. Bones appear intact. No suspicious lytic or blastic osseous lesions. IMPRESSION: 1. Multifocal multilobar distribution of groundglass densities with associated reticular nodular opac ities of the lingula and right middle lobe are suggestive of an atypical infectious or inflammatory p neumonitis. 2. No lobar airspace consolidation. 3. Mediastinal and hilar adenopathy, likely reactive. 4. No pleural effusion. 5. No evidence of pulmonary thromboembolic disease. ACT 112: Negative or not required by law. The above report was generated using voice recognition software. It may contain grammatical, syntax o r spelling errors. Electronically signed by: Yong Bansal M.D. 03/27/2019 12:11 PM
[2019-03-27] MEDS ORDERED: cefTRIAXone SODIUM 2,000 MG/70 ML BAG IV STA (12:44)
[2019-03-27] MEDS ORDERED: DOXYCYCLINE HYCLATE 100 MG in DEXTROSE 5% 100 ML IV STA (12:44)
--- NOTE | 2019-03-27 15:14 | Emergency Department Note ---
Entered by Adriano Payan acting as a scribe for ED Provider Note CHIEF COMPLAINT: Flu like symptom HISTORY OF PRESENT ILLNESS: The patient is a 49 year old male who presents to the Emergency Room with complaints of constant flu like symptoms that have persisted over the past 3 weeks. The patient states for the first week of symptoms he would have chills going to bed but wake up drenched in sweat but this has resolved since. The patient does still have a productive cough with white foamy sputum. He also endorses shortness of breath that is worse with lying down as well as congestion and a headache. The patient has some chest tightness secondary to his cough and congestion. The patient mentioned that he has lost 7 pounds in the past month. The patient saw his PCP last week and was prescribed Augmentin and Prednisone, which he states slightly improved his symptoms but they have still persisted. The patient does admit to smoking a pack a day for the past 20 years but does not use breathing treatments or oxygen at baseline. Pt denies LOC, fevers, chills, diaphoresis, visual changes, neck pain, nausea, vomiting, abdominal pain, back pain, melena, hematochezia, urinary symptoms, numbness, weakness, lymphadenopathy, rash, or other complaints. REVIEW OF SYSTEMS: See HPI for pertinent positives and negatives. A total of ten systems were reviewed and were otherwise negative. PMHx/PSHx: Migraine SOCIAL HISTORY: Patient lives at home. Smoker. PHYSICAL EXAM: GENERAL: Awake, alert, tired-appearing, in no distress. HENT: Normocephalic, atraumatic. Oropharynx unremarkable. EYES: Normal conjunctiva. Sclera non-icteric. NECK: Inspection normal. Non-tender. Supple. No nuchal rigidity. FROM. No masses. RESPIRATORY: Clear to auscultation. No wheezes. No rales. Normal respiratory effort. Moderate cough effort. CARDIAC: Tachycardic rate. Normal rhythm. No murmurs. No rubs. Extremities warm and well perfused. Pulses equal. No JVD. GI: Soft, non-distended. No tenderness to palpation. No rebound or guarding. No masses. RECTAL: Deferred. MUSCULOSKELETAL: Atraumatic. Chest examination reveals no tenderness. The back is symmetrical on inspection without obvious abnormality. There is no CVA tenderness to palpation. No joint edema. LOWER EXTREMITIES: Calves are equal size bilaterally and non-tender. No edema. No discoloration. NEURO: Normal sensorium. No sensory or motor deficits noted. SKIN: No rash or jaundice noted. EMERGENCY DEPARTMENT COURSE: 955: The patient was evaluated in room A10 by the resident Dr. Rodriguez, and a c omplete history and physical examination were performed. I then performed my own assessment. 1248: I reevaluated the patient and updated him on results. 1253: I discussed the patient's case with Selam MORAES under Dr. Azra Rush Hospitalist. They agreed to accept the patient for further evaluation. MEDICAL DECISION MAKING: Triage Nursing notes reviewed and agree them. The patient's history was concerning for shortness of breath. Differential diagnosis: Etiologies such as pneumonia, COPD, reactive airway disease, CHF, cardiac ischemia, pulmonary embolism, pneumothorax, musculoskeletal, infections, gastrointestinal, as well as others were entertained. Physical examination: As above. The patient did have mild hypoxia. ER treatment provided: Supplemental oxygen DuoNeb IV ceftriaxone IV doxycycline On reassessment the patient felt better. Diagnostic interpretation by me: The electrocardiogram was negative for ischemic change. The labs revealed a significant leukocytosis of 27,000. Chemistry panel was unr emarkable. Blood cultures pending Imaging studies: Chest x-ray unremarkable. CT PE study performed and revealed significant pneumonitis with bilateral distribution. Consultation: A consultation was placed with the hospitalist. The case was discussed and diagnostics were reviewed. The patient was evaluated in the ER for further treatment. The patient was seen and examined with Dr. Rodriguez, resident physician. We discussed the case and treatments ordered, reviewed the results, and determine the disposition. I have been directly involved with the management and disposition as well as independently evaluated the patient as documented in this note. IMPRESSION: Pneumonitis Hypoxia Leukocytosis PLAN: Being evaluated by the Hospitalist I have personally spent greater than 30 minutes of critical care time in the direct management of this patient. This includes bedside care, interpretation of diagnostic studies, and testing, discussion with consultants, patient, and other required patient management activities. This 30 minutes is in excess of all separately billable procedures. The scribe's documentation has been prepared under my direction and personally reviewed by me in its entirety. I confirm that the note above accurately reflects all work, treatment, procedures, and medical decision making performed by me. 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 Beliefs That Will Affect Care: None Current Living Situation: Alone Other Information That Helps Us Care for You: No Feels Safe at Home: Yes Safety Concerns: Feels Safe At This Time Smoking Status: Former smoker Tobacco Type: cigarettes ; Cigarettes Per Day: 20 ; Do You Dip or Chew Tobacco: No ; Smoking End Date: 03/13/2019 ; Second Hand Exposure: No ; Tobacco Cessation Education Requested by Patient: No Hx Alcohol Use: No Hx Substance Use: No Results & Data Vital Signs Vital Signs - 24 hr 03/27/19 09:40 03/27/19 10:47 03/27/19 11:00 Temperature 36.7 C Temperature Source Oral Pulse Rate 120 H 99 H 103 H Pulse Rate [Apical] Pulse Rate from SpO2 Sensor 100 H 100 H Respiratory Rate 20 16 24 Respiratory Effort / Characteristics Blood Pressure 136/83 115/80 136/75 Blood Pressure Mean 100 86 95 Pulse Oximetry 90 91 90 Oxygen Delivery Method Room Air Room Air Nasal Cannula Oxygen Flow Rate Sepsis Recent Fever Within 48 Hours No Sepsis New/Unexplained Change in Mental Status No Sepsis Action Taken by Nursing No Action Required Oxygen Flow Rate - Titration 3 Pulse Oximetry Post Tiitration 93 03/27/19 11:15 03/27/19 11:30 03/27/19 12:50 Temperature Temperature Source Pulse Rate 98 H Pulse Rate [Apical] 103 H Pulse Rate from SpO2 Sensor 98 H 100 H Respiratory Rate 18 27 H Respiratory Effort / Characteristics Spontaneous Short of Breath Blood Pressure 157/85 H Blood Pressure Mean 123 Pulse Oximetry 96 88 L 91 Oxygen Delivery Method Room Air Room Air Nasal Cannula Oxygen Flow Rate 3 Sepsis Recent Fever Within 48 Hours Sepsis New/Unexplained Change in Mental Status Sepsis Action Taken by Nursing Oxygen Flow Rate - Titration Pulse Oximetry Post Tiitration 03/27/19 12:53 03/27/19 13:00 03/27/19 13:04 Temperature Temperature Source Pulse Rate 96 H Pulse Rate [Apical] Pulse Rate from SpO2 Sensor 98 H 96 H Respiratory Rate 15 Respiratory Effort / Characteristics Blood Pressure 140/86 Blood Pressure Mean 107 Pulse Oximetry 96 93 94 Oxygen Delivery Method Room Air Nasal Cannula Nasal Cannula Nasal Cannula Oxygen Flow Rate 3 3 Sepsis Recent Fever Within 48 Hours Sepsis New/Unexplained Change in Mental Status Sepsis Action Taken by Nursing Oxygen Flow Rate - Titration 3 Pulse Oximetry Post Tiitration 93 03/27/19 15:00 Temperature Temperature Source Pulse Rate 85 Pulse Rate [Apical] Pulse Rate from SpO2 Sensor 87 Respiratory Rate 33 H Respiratory Effort / Characteristics Blood Pressure 126/81 Blood Pressure Mean 95 Pulse Oximetry 93 Oxygen Delivery Method Room Air Oxygen Flow Rate Sepsis Recent Fever Within 48 Hours Sepsis New/Unexplained Change in Mental Status Sepsis Action Taken by Nursing Oxygen Flow Rate - Titration Pulse Oximetry Post Tiitration Home Medications Current Medication List: was personally reviewed by me Laboratory Data Attestation: I reviewed the patient's lab results. Result diagrams: 03/27/19 10:23 03/27/19 10:23 Lab Results 03/27/19 03/27/19 03/27/19 Range/Units 10:00 10:23 10:23 WBC 27.27 H (4.8-10.8) K/uL RBC 4.76 (4.7-6.1) M/uL Hgb 15.2 (14.0-18.0) g/dL Hct 44.2 (42-52) % MCV 92.9 (80-100) fL MCH 31.9 (25-34) pg MCHC 34.4 (32-36) g/dL RDW Std Deviation 44.6 (36.4-46.3) fL RDW Coeff of Ravi 13.1 (11.5-14.5) % Plt Count 353 (130-400) K/uL MPV 9.5 (7.4-10.4) fL Immature Gran % (Auto) 1.0 % Neut % (Auto) 83.1 % Lymph % (Auto) 9.8 % Cameron % (Auto) 4.9 % Eos % (Auto) 1.1 % Baso % (Auto) 0.1 % Immature Gran # (Auto) 0.26 H (0.00-0.02) K/uL Neut # (Auto) 22.68 H (1.4-6.5) K/uL Lymph # (Auto) 2.68 (1.2-3.4) K/uL Cameron # (Auto) 1.33 H (0.11-0.59) K/uL Eos # (Auto) 0.29 (0-0.5) K/uL Baso # (Auto) 0.03 (0-0.2) K/uL Absolute Nucleated RBC 0.02 H (0-0) K/uL Nucleated RBC % (auto) 0.1 % Sodium 137 (136-145) mmol/L Potassium 4.1 (3.5-5.1) mmol/L Chloride 106 (98-107) mmol/L Carbon Dioxide 27 (21-32) mmol/L Anion Gap 4.0 (3-11) BUN 15 (7-18) mg/dl Creatinine 0.91 (0.6-1.4) mg/dl Est Cr Clr Drug Dosing 116.0 ml/min Est GFR ( Amer) 115.9 Est GFR (Non-Af Amer) 100.0 BUN/Creatinine Ratio 16.4 (10-20) Glucose 107 H (70-99) mg/dl Lactate (0.4-2.0) mmol/L Calcium 9.4 (8.5-10.1) mg/dl Total Bilirubin 0.8 (0.2-1) mg/dl AST 13 L (15-37) U/L ALT 47 (12-78) U/L Alkaline Phosphatase 89 (45-117) U/L Total Protein 7.4 (6.4-8.2) gm/dl Albumin 3.2 L (3.4-5.0) gm/dl Globulin 4.2 H (2.5-4.0) gm/dl Albumin/Globulin Ratio 0.8 L (0.9-2) Urine Color Urine Appearance (Clear) Urine pH (4.5-7.5) Ur Specific [place] (1.000-1.030) Urine Protein (Negative) Urine Glucose (UA) (Negative) Urine Ketones (Negative) Urine Blood (Negative) Urine Nitrite (Negative) Urine Bilirubin (Negative) Urine Urobilinogen (Negative) Ur Leukocyte Esterase (Negative) Influenza Type A Ag Neg for Influ A (Neg) Influenza Type B Ag Neg for Influ B (Neg) 01/03/20 01/03/20 Range/Units 10:23 10:45 WBC (4.8-10.8) K/uL RBC (4.7-6.1) M/uL Hgb (14.0-18.0) g/dL Hct (42-52) % MCV (80-100) fL MCH (25-34) pg MCHC (32-36) g/dL RDW Std Deviation (36.4-46.3) fL RDW Coeff of Ravi (11.5-14.5) % Plt Count (130-400) K/uL MPV (7.4-10.4) fL Immature Gran % (Auto) % Neut % (Auto) % Lymph % (Auto) % Cameron % (Auto) % Eos % (Auto) % Baso % (Auto) % Immature Gran # (Auto) (0.00-0.02) K/uL Neut # (Auto) (1.4-6.5) K/uL Lymph # (Auto) (1.2-3.4) K/uL Cameron # (Auto) (0.11-0.59) K/uL Eos # (Auto) (0-0.5) K/uL Baso # (Auto) (0-0.2) K/uL Absolute Nucleated RBC (0-0) K/uL Nucleated RBC % (auto) % Sodium (136-145) mmol/L Potassium (3.5-5.1) mmol/L Chloride (98-107) mmol/L Carbon Dioxide (21-32) mmol/L Anion Gap (3-11) BUN (7-18) mg/dl Creatinine (0.6-1.4) mg/dl Est Cr Clr Drug Dosing ml/min Est GFR ( Amer) Est GFR (Non-Af Amer) BUN/Creatinine Ratio (10-20) Glucose (70-99) mg/dl Lactate 1.2 (0.4-2.0) mmol/L Calcium (8.5-10.1) mg/dl Total Bilirubin (0.2-1) mg/dl AST (15-37) U/L ALT (12-78) U/L Alkaline Phosphatase (45-117) U/L Total Protein (6.4-8.2) gm/dl Albumin (3.4-5.0) gm/dl Globulin (2.5-4.0) gm/dl Albumin/Globulin Ratio (0.9-2) Urine Color Yellow Urine Appearance Clear (Clear) Urine pH 6.5 (4.5-7.5) Ur Specific [place] 1.027 (1.000-1.030) Urine Protein Negative (Negative) Urine Glucose (UA) Negative (Negative) Urine Ketones Negative (Negative) Urine Blood Negative (Negative) Urine Nitrite Negative (Negative) Urine Bilirubin Negative (Negative) Urine Urobilinogen Negative (Negative) Ur Leukocyte Esterase Negative (Negative) Influenza Type A Ag (Neg) Influenza Type B Ag (Neg) Administered Medications Ioversol (Optiray 320 125ml) 120 ml IV ONCE PRN PRN Reason: Interaction Checking Stop: 03/31/19 11:45 Last Admin: 03/27/19 11:46 Dose: 120 ml Documented by: [id number] Discontinued Medications Albuterol (Duoneb) 3 ml NEB NOW STA Stop: 03/27/19 10:53 Last Admin: 03/27/19 11:12 Dose: 3 ml Documented by: [id number] Sodium Chloride (Nss 1000ml) 1,000 mls @ 999 mls/hr IV .Q1H1M SUMAN Stop: 03/27/19 11:15 Last Infusion: 03/27/19 11:37 Dose: 0 mls/hr Documented by: [id number] Admin: 03/27/19 10:50 Dose: 999 mls/hr Documented by: [id number] Ceftriaxone Sodium (Rocephin) 2,000 mg in 70 mls @ 140 mls/hr IV NOW STA Stop: 03/27/19 13:13 Last Infusion: 03/27/19 14:48 Dose: 0 mls/hr Documented by: [id number] Admin: 03/27/19 14:15 Dose: 140 mls/hr Documented by: [id number] Doxycycline Hyclate 100 mg/ (Dextrose) 110 mls @ 50 mls/hr IV NOW STA Stop: 03/27/19 14:55 Last Admin: 03/27/19 14:48 Dose: 50 mls/hr Documented by: [id number] Imaging Data Radiologist's Impression: Radiology results as stated below per my review and the radiologist's interpretation: SINGLE VIEW CHEST CLINICAL HISTORY: Cough. FINDINGS: An AP, portable, upright chest radiograph is obtained. No prior studies are available for comparison at the time of dictation. The examination is degraded by portable technique, apical lordotic positioning, and patient rotation. The heart is top normal for projection. The lungs and pleural spaces are clear. No pneumothorax is seen. There is chronic posttraumatic deformity of the right clavicle. IMPRESSION: No active disease in the chest. ACT 112: Negative or not required by law. Electronically signed by: Louie Hong M.D. 03/27/2019 10:[address] angio chest PE protocol CT DOSE: 603.19 mGy.cm HISTORY: 49 years-old Male with PE. Acute cough with fever and chills TECHNIQUE: Multiple CTA images of the chest were obtained after the intravenous administration of 120 ml Optiray 320. Coronal and sagittal MIPS were obtained from the axial data set and were submitted for review. All measurements were obtained according to NASCET criteria. A dose lowering technique was utilized adhering to the principles of ALARA. COMPARISON: Chest radiograph of same day, CT abdomen pelvis 05/07/2017 FINDINGS: CTA: The heart is upper limits of normal in size. No pericardial effusion. Thoracic aorta is normal in course and caliber without aneurysm or dissection. There is patency of the imaged great vessels. The pulmonary arterial tree is opacified to the level of the proximal subsegmental branches and demonstrates no filling defects to suggest pulmonary thromboembolic disease. The distal subsegmental branches within the level of the lung bases are not well opacified. CT CHEST: Unremarkable thyroid. Enlarged mediastinal lymph nodes include AP window lymph nodes measuring up to 12 mm in short axis. Enlarged hilar lymph nodes include a 2.6 x 1.6 cm right hilar lymph node. Subcarinal lymph nodes measure up to 12 mm in short axis. There is no pneumothorax or pleural effusion. Subcentimeter thin- walled cyst of the lingula, image 206 series 5. Patchy multifocal groundglass densities are seen a multilobar distribution bilaterally. Mild reticulonodular densities of the right middle lobe and lingula. The millimeters solid nodule with mild adjacent groundglass density involves the right upper lobe, image 225 series 5. 6 mm solid nodular opacity of the right upper lobe, image 194 series 5. 6 mm nodular opacity of the right upper lobe on image 216 series 5 suggests probable lymph node. Central airways are patent. Suggested hepatic steatosis. Cyst of the interpolar left kidney, partially imaged. Mild nonspecific distal esophageal wall thickening. Opacified collateral vessels of the right chest wall. Bones appear intact. No suspicious lytic or bl astic osseous lesions. IMPRESSION: 1. Multifocal multilobar distribution of groundglass densities with associated reticular nodular opacities of the lingula and right middle lobe are suggestive of an atypical infectious or inflammatory pneumonitis. 2. No lobar airspace consolidation. 3. Mediastinal and hilar adenopathy, likely reactive. 4. No pleural effusion. 5. No evidence of pulmonary thromboembolic disease. ACT 112: Negative or not required by law. The above report was generated using voice recognition software. It may contain grammatical, syntax or spelling errors. Electronically signed by: Yong Bansal M.D. 03/27/2019 12:11 PM ECG Data Attestation: I personally reviewed and interpreted this ECG as follows: Indication: + SOB/dyspnea Rate (beats per minute): 100 Rhythm: normal sinus ECG Intervals/blocks: + Incomplete right bundle branch block and + Normal QRS ECG [place]: + Normal ECG ST segments: no ST depression and no ST elevation ECG Findings: no PVCs Blood Pressure Blood Pressure Findings: Elevated blood pressure Blood Pressure Disposition: Referred to patients primary care provider Discharge Plan Visit Data Chief Complaint: Flu Like Symptoms Stated Complaint: COUGH,FEELS LIKE FLUID IN LUNGS ED Provider: Gianfranco Meyer ED Midlevel Provider: Juaquin Rodriguez Discharge Problem: Pneumonitis, Hypoxia, Leukocytosis Patient Disposition: Being Evaluated by Hospitalist Forms Stand Alone Forms: My [facility] [employer] Prescriptions Prescriptions: No Action [facility] 1.5 billion cell Capsule 1 cap PO DAILY RF: 0 Referrals Referrals: Matthew Escoto MD [Primary Care Provider] - Discharge Problem: Leukocytosis Qualifiers: Leukocytosis type: unspecified Qualified Code(s): D72.829 - Elevated white blood cell count, unspecified The scribe's documentation has been prepared under my direction and personally reviewed by me in its entirety. I confirm that the note above accurately reflects all work, treatment, procedures, and medical decision making performed by me.
[2019-03-27 16:30] LABS: Influenza A virus by PCR Neg for Influ A (Neg); Influenza B virus by PCR Neg for Influ B (Neg)
--- NOTE | 2019-03-27 16:49 | History & Physical Report ---
Date of Service March 27, 2019 Assessment & Plan (1) Multifocal pneumonia: (2) Hypoxia: -Admit to [facility] w/ telemetry -Patient presenting from home with reports of increasing cough and shortness of breath for the past 2 weeks, was seen in PCPs office on 03/19 and given a azithromycin and prednisone -In the ED, found to be hypoxic on room air at 87%, which improved with oxygen 2 L via nasal cannula -Chest CTA shows multifocal multilobar distribution of groundglass densities with associated reticular nodular opacities of the lingula and right middle lobe are suggestive of an atypical infectious or inflammatory pneumonitis. 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 Vail -Mycoplasma and Legionella ordered (3) DVT prophylaxis: -SCDs, ambulate History of Present Illness Chief Complaint: Cough, shortness of breath Primary Care Provider: Matthew Escoto MD 49-year-old male who presents the ED for evaluation of cough and shortness of breath. Patient reports he started to get sick about 1 week before Mira. On 03/19, patient was seen at his PCPs office and placed on azithromycin and prednisone. He reports a brief improvement in symptoms however they returned. He has had a cough that is been productive for white/clear sputum. He reports feeling short of breath with minimal exertion. No chest pain. Denies fevers and chills. No recent travel or sick contacts. Denies lightheadedness, dizziness, diaphoresis, syncopal events. No abdominal pain, nausea, vomiting, diarrhea. No urinary symptoms. In the ED, labs show WBC 27K and patient was hypoxic on room air at 87% which improved with oxygen 2 L via nasal cannula. CTA chest shows multifocal multilobar distribution of groundglass densities with associated reticular nodular opacities of the lingula and right middle lobe are suggestive of an atypical infectious or inflammatory pneumonitis. Patient was given nebulizer treatment, IV ceftriaxone, IV doxycycline, IVF. Allergies Allergy/AdvReac Type Severity Reaction Status Date / Time bee venom protein (honey bee) Allergy Unknown . Unverified 03/27/19 10:36 Home Medications Home Medications Medication Instructions Recorded Confirmed Type L. gasseri-B. 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 Beliefs That Will Affect Care: None Current Living Situation: Alone Other Information That Helps Us Care for You: No Feels Safe at Home: Yes Safety Concerns: Feels Safe At This Time Smoking Status: Current every day smoker Tobacco Type: cigarettes ; Cigarettes Per Day: 1 PPD ; Do You Dip or Chew Tobacco: No ; Smoking End Date: ~3 weeks ago ; Second Hand Exposure: No ; Tobacco Cessation Education Requested by Patient: No Hx Alcohol Use: Yes Alcohol type: beer Alcohol type Comment: 15 beers/week Hx Substance Use: No Review of Systems Review of Systems: ROS per HPI, all other systems reviewed and negative Physical Exam Constitutional: WD/WN, vitals as above Eyes: PERRL, conjunctivae normal, anicteric sclerae ENMT: external ear and nose normal, oropharynx normal Respiratory: normal respiratory effort; no respiratory distress Auscultation: + rales (faint, scattered, bilaterally); no wheezes Cardiovascular: Rate/Rhythm: regular rhythm and + tachycardic Vessels: normal peripheral pulses Extremities: no edema Gastrointestinal (Abdomen): normal bowel sounds, soft, nontender, no hepatosplenomegaly Musculoskeletal: no cyanosis or clubbing, extremities motor strength 5/5 Skin: no rashes, warm and dry Neurologic: PERRL, EOMI, accommodation nl, no face palsy, no dysarthria Psychiatric: A+Ox3, euthymic affect Results & Data Vital Signs (Past 12 Hours) Vital Signs Temp Pulse Pulse Resp BP Pulse Ox 03/27/19 16:43 93 H 21 107/75 94 03/27/19 16:31 93 H 21 107/75 94 03/27/19 16:00 86 31 H 133/78 97 03/27/19 15:30 90 30 H 119/77 93 03/27/19 15:00 85 33 H 126/81 93 03/27/19 13:04 96 H 15 140/86 94 03/27/19 13:00 93 03/27/19 12:53 96 03/27/19 12:50 91 03/27/19 11:30 98 H 27 H 157/85 H 88 L 03/27/19 11:15 103 H 18 96 03/27/19 11:00 103 H 24 136/75 90 03/27/19 10:47 99 H 16 115/80 91 03/27/19 09:40 36.7 C 120 H 20 136/83 90 Laboratory Results Short CBC 03/27/19 Range/Units 10:23 WBC 27.27 H (4.8-10.8) K/uL Hgb 15.2 (14.0-18.0) g/dL Hct 44.2 (42-52) % Plt Count 353 (130-400) K/uL BMP 03/27/19 10:23 Sodium 137 Potassium 4.1 Chloride 106 Carbon Dioxide 27 BUN 15 Creatinine 0.91 Glucose 107 H Calcium 9.4 Liver Function 03/27/19 Range/Units 10:23 Total Bilirubin 0.8 (0.2-1) mg/dl AST 13 L (15-37) U/L ALT 47 (12-78) U/L Alkaline Phosphatase 89 (45-117) U/L Albumin 3.2 L (3.4-5.0) gm/dl Urine 03/27/19 Range/Units 10:45 Urine Color Yellow Urine Appearance Clear (Clear) Urine pH 6.5 (4.5-7.5) Ur Specific [place] 1.027 (1.000-1.030) Urine Protein Negative (Negative) Urine Glucose (UA) Negative (Negative) Diagnostic Findings CXR IMPRESSION: No active disease in the chest. CHEST CTA IMPRESSION: 1. Multifocal multilobar distribution of groundglass densities with associated reticular nodular opacities of the lingula and right middle lobe are suggestive of an atypical infectious or inflammatory pneumonitis. 2. No lobar airspace consolidation. 3. Mediastinal and hilar adenopathy, likely reactive. 4. No pleural effusion. 5. No evidence of pulmonary thromboembolic disease. Code Status & VTE Plan VTE Prophylaxis Plan VTE Prophylaxis will be ordered: Yes Supervising Physician Co-Signing Physician Notes Pt was seen and examined. Agreed with Beatris MORAES exam, assessment an plan. 49 yo M with no significant PMH present to the ER with worsening cough associated with SOB. CTA chest done in the ER showed multifocal multilobar distribution of groundglass densities with associated reticular nodular opacities of the lingula and right middle lobe are suggestive of an atypical infectious or inflammatory pneumonitis. Influenza PCR negative. Received IV rocephin and doxycycline in the ER, will continue abx. Pulmonary consult. Will continue monitor closely. MD Azra
[2019-03-27] MEDS ORDERED: ALBUT/IPRATROP 3MG/0.5MG NEB 3 ML VIAL NEB PRN (17:02)
[2019-03-27] MEDS ORDERED: ACETAMINOPHEN 325 MG TAB PO PRN (17:02)
[2019-03-27] MEDS: DOXYCYCLINE HYCLATE 100 MG in DEXTROSE 5% 100 ML IV SCH (19:53)
--- NOTE | 2019-03-28 07:42 | Electrocardiogram Report ---
Test Reason : Blood Pressure : / mmHG Vent. Rate : 100 BPM Atrial Rate : 100 BPM P-R Int : 126 ms QRS Dur : 106 ms QT Int : 350 ms P-R-T Axes : 077 059 070 degrees QTc Int : 451 ms Normal sinus rhythm Incomplete right bundle branch block Borderline ECG No previous ECGs available Confirmed by Kishan Tejeda ([id number]) on 03/28/2019 7:41:47 AM Referred By: REFERRED SELF Confirmed By:Felipe Tejeda
[2019-03-28 07:46] LABS: BUN Creatinine Ratio 15.5 (10-20); Calcium 9.3 mg/dl (8.5-10.1); Creatinine Clr Calc Pharmacy 111.8 ml/min; Est GFR (African American) 119.1; Est GFR (Non-African American) 102.8; Potassium 4.2 mmol/L (3.5-5.1)
[2019-03-28 07:47] LABS: Hemoglobin 14.4 g/dL (14.0-18.0); Mean Corpuscular Hemoglobin 32.8 pg (25-34); Mean Corpuscular Hgb Conc 34.3 g/dL (32-36); Mean Corpuscular Volume 95.7 fL (80-100); Mean Platelet Volume 9.3 fL (7.4-10.4); Platelet Count 338 K/uL (130-400); RDW Coefficient of Variation 13.1 % (11.5-14.5); RDW Standard Deviation 45.3 fL (36.4-46.3); Red Blood Count 4.39 M/uL (4.7-6.1); White Blood Count 13.75 K/uL (4.8-10.8)
--- NOTE | 2019-03-28 08:47 | Hospitalist Progress Note ---
Date of Service March 28, 2019 Assessment & Plan (1) Multifocal pneumonia: (2) Hypoxia: Patient presenting from home with reports of increasing cough and shortness of breath for the past 2 weeks, was seen in PCPs office on 03/19 and given a azithromycin and prednisone In the ED, found to be hypoxic on room air at 87%, which improved with oxygen 2 L via nasal cannula Chest CTA shows multifocal multilobar distribution of groundglass densities with associated reticular nodular opacities of the lingula and right middle lobe are suggestive of an atypical infectious or inflammatory pneumonitis. WBC 27K; stable vitals, normal lactic acid, does not appear septic - Influenza negative - started IV ceftriaxone and doxycycline in the ED, will continue - cont. 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 Vail -recommend continuing antibiotics for 7 days total. Patient will also need CT follow-up in 6 to 8 weeks. If he is not improving, will consider bronchoscopy. -Mycoplasma and Legionella ordered -Provided counseling for smoking cessation (3) DVT prophylaxis: -SCDs, ambulate Subjective Patient is sitting up in bed, in no acute distress, says that he feels much better already. Denies any fevers, chills, chest pain, palpitations, abdominal pain, nausea or vomiting. Says that breathing is already much better. Leukocytosis improved from 27k to 13k Influenza negative Patient was started on ceftriaxone and doxy, DuoNebs on admission Review of Systems Review of Systems: All systems reviewed & are unremarkable except as noted in HPI & below Constitutional: no fever and no chills Respiratory: + cough and + dyspnea Cardiovascular: no chest pain, no palpitations and no edema Gastrointestinal: no abdominal pain, no nausea and no vomiting Physical Exam Physical Exam: Constitutional: Middle-aged male, sitting up in the bed, in no acute distress, on 2 L of supplemental oxygen Eyes: PERRL, EOMI, conjunctivae normal, anicteric sclerae ENMT: external ear and nose normal, oropharynx normal Respiratory: normal respiratory effort; no respiratory distress Auscultation: + faint diffuse rhonchi, no wheezes Cardiovascular: regular, no murmurs noted, vessels: normal peripheral pulses Extremities: no edema Gastrointestinal (Abdomen): normal bowel sounds, soft, nontender, nondistended, no guarding Musculoskeletal: no cyanosis or clubbing, extremities motor strength 5/5, moves all 4 extremities spontaneously Skin: no rashes, warm and dry Neurologic: PERRL, EOMI, accommodation nl, no face palsy, no dysarthria Psychiatric: A+Ox3, euthymic affect Results & Data Vital Signs (Past 12 Hours) Vital Signs Temp Pulse Pulse Resp BP Pulse Ox 03/28/19 08:22 36.6 C 81 20 121/76 90 03/28/19 07:26 80 03/28/19 03:34 37.0 C 89 22 112/72 90 03/27/19 23:35 36.9 C 88 20 127/77 91 03/27/19 22:20 80 Laboratory Results 03/28/19 03/28/19 03/27/19 Range/Units 06:52 06:52 15:03 WBC 13.75 H D (4.8-10.8) K/uL RBC 4.39 L (4.7-6.1) M/uL Hgb 14.4 (14.0-18.0) g/dL Hct 42.0 (42-52) % MCV 95.7 (80-100) fL MCH 32.8 (25-34) pg MCHC 34.3 (32-36) g/dL RDW Std Deviation 45.3 (36.4-46.3) fL RDW Coeff of Ravi 13.1 (11.5-14.5) % Plt Count 338 (130-400) K/uL MPV 9.3 (7.4-10.4) fL Immature Gran % (Auto) % Neut % (Auto) % Lymph % (Auto) % Greene % (Auto) % Eos % (Auto) % Baso % (Auto) % Immature Gran # (Auto) (0.00-0.02) K/uL Neut # (Auto) (1.4-6.5) K/uL Lymph # (Auto) (1.2-3.4) K/uL Greene # (Auto) (0.11-0.59) K/uL Eos # (Auto) (0-0.5) K/uL Baso # (Auto) (0-0.2) K/uL Absolute Nucleated RBC (0-0) K/uL Nucleated RBC % (auto) % Sodium 137 (136-145) mmol/L Potassium 4.2 (3.5-5.1) mmol/L Chloride 105 (98-107) mmol/L Carbon Dioxide 26 (21-32) mmol/L Anion Gap 6.0 (3-11) BUN 14 (7-18) mg/dl Creatinine 0.87 (0.6-1.4) mg/dl Est Cr Clr Drug Dosing 111.8 ml/min Est GFR ( Amer) 119.1 Est GFR (Non-Af Amer) 102.8 BUN/Creatinine Ratio 15.5 (10-20) Glucose 87 (70-99) mg/dl Lactate (0.4-2.0) mmol/L Calcium 9.3 (8.5-10.1) mg/dl Total Bilirubin (0.2-1) mg/dl AST (15-37) U/L ALT (12-78) U/L Alkaline Phosphatase (45-117) U/L Total Protein (6.4-8.2) gm/dl Albumin (3.4-5.0) gm/dl Globulin (2.5-4.0) gm/dl Albumin/Globulin Ratio (0.9-2) Procalcitonin (0-0.5) ng/ml Urine Color Urine Appearance (Clear) Urine pH (4.5-7.5) Ur Specific [place] (1.000-1.030) Urine Protein (Negative) Urine Glucose (UA) (Negative) Urine Ketones (Negative) Urine Blood (Negative) Urine Nitrite (Negative) Urine Bilirubin (Negative) Urine Urobilinogen (Negative) Ur Leukocyte Esterase (Negative) Influenza Type A Ag (Neg) Influenza Type A (PCR) (Neg) Influenza Type B Ag (Neg) Influenza Type B (PCR) (Neg) Mycoplasma pneumon IgG Pending Mycoplasma pneumon IgM Pending 03/27/19 03/27/19 03/27/19 Range/Units 15:03 10:45 10:23 WBC (4.8-10.8) K/uL RBC (4.7-6.1) M/uL Hgb (14.0-18.0) g/dL Hct (42-52) % MCV (80-100) fL MCH (25-34) pg MCHC (32-36) g/dL RDW Std Deviation (36.4-46.3) fL RDW Coeff of Ravi (11.5-14.5) % Plt Count (130-400) K/uL MPV (7.4-10.4) fL Immature Gran % (Auto) % Neut % (Auto) % Lymph % (Auto) % Greene % (Auto) % Eos % (Auto) % Baso % (Auto) % Immature Gran # (Auto) (0.00-0.02) K/uL Neut # (Auto) (1.4-6.5) K/uL Lymph # (Auto) (1.2-3.4) K/uL Greene # (Auto) (0.11-0.59) K/uL Eos # (Auto) (0-0.5) K/uL Baso # (Auto) (0-0.2) K/uL Absolute Nucleated RBC (0-0) K/uL Nucleated RBC % (auto) % Sodium (136-145) mmol/L Potassium (3.5-5.1) mmol/L Chloride (98-107) mmol/L Carbon Dioxide (21-32) mmol/L Anion Gap (3-11) BUN (7-18) mg/dl Creatinine (0.6-1.4) mg/dl Est Cr Clr Drug Dosing ml/min Est GFR ( Amer) Est GFR (Non-Af Amer) BUN/Creatinine Ratio (10-20) Glucose (70-99) mg/dl Lactate 1.2 (0.4-2.0) mmol/L Calcium (8.5-10.1) mg/dl Total Bilirubin (0.2-1) mg/dl AST (15-37) U/L ALT (12-78) U/L Alkaline Phosphatase (45-117) U/L Total Protein (6.4-8.2) gm/dl Albumin (3.4-5.0) gm/dl Globulin (2.5-4.0) gm/dl Albumin/Globulin Ratio (0.9-2) Procalcitonin < 0.05 (0-0.5) ng/ml Urine Color Yellow Urine Appearance Clear (Clear) Urine pH 6.5 (4.5-7.5) Ur Specific [place] 1.027 (1.000-1.030) Urine Protein Negative (Negative) Urine Glucose (UA) Negative (Negative) Urine Ketones Negative (Negative) Urine Blood Negative (Negative) Urine Nitrite Negative (Negative) Urine Bilirubin Negative (Negative) Urine Urobilinogen Negative (Negative) Ur Leukocyte Esterase Negative (Negative) Influenza Type A Ag (Neg) Influenza Type A (PCR) (Neg) Influenza Type B Ag (Neg) Influenza Type B (PCR) (Neg) Mycoplasma pneumon IgG Mycoplasma pneumon IgM 03/27/19 03/27/19 03/27/19 Range/Units 10:23 10:23 10:00 WBC 27.27 H (4.8-10.8) K/uL RBC 4.76 (4.7-6.1) M/uL Hgb 15.2 (14.0-18.0) g/dL Hct 44.2 (42-52) % MCV 92.9 (80-100) fL MCH 31.9 (25-34) pg MCHC 34.4 (32-36) g/dL RDW Std Deviation 44.6 (36.4-46.3) fL RDW Coeff of Ravi 13.1 (11.5-14.5) % Plt Count 353 (130-400) K/uL MPV 9.5 (7.4-10.4) fL Immature Gran % (Auto) 1.0 % Neut % (Auto) 83.1 % Lymph % (Auto) 9.8 % Greene % (Auto) 4.9 % Eos % (Auto) 1.1 % Baso % (Auto) 0.1 % Immature Gran # (Auto) 0.26 H (0.00-0.02) K/uL Neut # (Auto) 22.68 H (1.4-6.5) K/uL Lymph # (Auto) 2.68 (1.2-3.4) K/uL Greene # (Auto) 1.33 H (0.11-0.59) K/uL Eos # (Auto) 0.29 (0-0.5) K/uL Baso # (Auto) 0.03 (0-0.2) K/uL Absolute Nucleated RBC 0.02 H (0-0) K/uL Nucleated RBC % (auto) 0.1 % Sodium 137 (136-145) mmol/L Potassium 4.1 (3.5-5.1) mmol/L Chloride 106 (98-107) mmol/L Carbon Dioxide 27 (21-32) mmol/L Anion Gap 4.0 (3-11) BUN 15 (7-18) mg/dl Creatinine 0.91 (0.6-1.4) mg/dl Est Cr Clr Drug Dosing 116.0 ml/min Est GFR ( Amer) 115.9 Est GFR (Non-Af Amer) 100.0 BUN/Creatinine Ratio 16.4 (10-20) Glucose 107 H (70-99) mg/dl Lactate (0.4-2.0) mmol/L Calcium 9.4 (8.5-10.1) mg/dl Total Bilirubin 0.8 (0.2-1) mg/dl AST 13 L (15-37) U/L ALT 47 (12-78) U/L Alkaline Phosphatase 89 (45-117) U/L Total Protein 7.4 (6.4-8.2) gm/dl Albumin 3.2 L (3.4-5.0) gm/dl Globulin 4.2 H (2.5-4.0) gm/dl Albumin/Globulin Ratio 0.8 L (0.9-2) Procalcitonin (0-0.5) ng/ml Urine Color Urine Appearance (Clear) Urine pH (4.5-7.5) Ur Specific [place] (1.000-1.030) Urine Protein (Negative) Urine Glucose (UA) (Negative) Urine Ketones (Negative) Urine Blood (Negative) Urine Nitrite (Negative) Urine Bilirubin (Negative) Urine Urobilinogen (Negative) Ur Leukocyte Esterase (Negative) Influenza Type A Ag (Neg) Influenza Type A (PCR) Neg for Influ A (Neg) Influenza Type B Ag (Neg) Influenza Type B (PCR) Neg for Influ B (Neg) Mycoplasma pneumon IgG Mycoplasma pneumon IgM 03/27/19 Range/Units 10:00 WBC (4.8-10.8) K/uL RBC (4.7-6.1) M/uL Hgb (14.0-18.0) g/dL Hct (42-52) % MCV (80-100) fL MCH (25-34) pg MCHC (32-36) g/dL RDW Std Deviation (36.4-46.3) fL RDW Coeff of Ravi (11.5-14.5) % Plt Count (130-400) K/uL MPV (7.4-10.4) fL Immature Gran % (Auto) % Neut % (Auto) % Lymph % (Auto) % [place] % (Auto) % Eos % (Auto) % Baso % (Auto) % Immature Gran # (Auto) (0.00-0.02) K/uL Neut # (Auto) (1.4-6.5) K/uL Lymph # (Auto) (1.2-3.4) K/uL [place] # (Auto) (0.11-0.59) K/uL Eos # (Auto) (0-0.5) K/uL Baso # (Auto) (0-0.2) K/uL Absolute Nucleated RBC (0-0) K/uL Nucleated RBC % (auto) % Sodium (136-145) mmol/L Potassium (3.5-5.1) mmol/L Chloride (98-107) mmol/L Carbon Dioxide (21-32) mmol/L Anion Gap (3-11) BUN (7-18) mg/dl Creatinine (0.6-1.4) mg/dl Est Cr Clr Drug Dosing ml/min Est GFR ( Amer) Est GFR (Non-Af Amer) BUN/Creatinine Ratio (10-20) Glucose (70-99) mg/dl Lactate (0.4-2.0) mmol/L Calcium (8.5-10.1) mg/dl Total Bilirubin (0.2-1) mg/dl AST (15-37) U/L ALT (12-78) U/L Alkaline Phosphatase (45-117) U/L Total Protein (6.4-8.2) gm/dl Albumin (3.4-5.0) gm/dl Globulin (2.5-4.0) gm/dl Albumin/Globulin Ratio (0.9-2) Procalcitonin (0-0.5) ng/ml Urine Color Urine Appearance (Clear) Urine pH (4.5-7.5) Ur Specific [place] (1.000-1.030) Urine Protein (Negative) Urine Glucose (UA) (Negative) Urine Ketones (Negative) Urine Blood (Negative) Urine Nitrite (Negative) Urine Bilirubin (Negative) Urine Urobilinogen (Negative) Ur Leukocyte Esterase (Negative) Influenza Type A Ag Neg for Influ A (Neg) Influenza Type A (PCR) (Neg) Influenza Type B Ag Neg for Influ B (Neg) Influenza Type B (PCR) (Neg) Mycoplasma pneumon IgG Mycoplasma pneumon IgM Medications Administered Current Inpatient Medications Acetaminophen (Tylenol) 650 mg PO Q4H PRN PRN Reason: pain/fever Stop: 04/26/19 17:01 Albuterol (Duoneb) 3 ml NEB Q4R PRN PRN Reason: shortness of breath Stop: 04/26/19 17:01 Ceftriaxone Sodium (Rocephin) 2,000 mg in 70 mls @ 140 mls/hr IV Q24H SUMAN Stop: 04/04/19 11:59 Doxycycline Hyclate 100 mg/ (Dextrose) 110 mls @ 50 mls/hr IV BID SUMAN Stop: 04/03/19 20:59 Last Infusion: 03/27/19 22:07 Dose: Infused Documented by: Lactobacillus Acidophilus (Floranex) 1 tab PO DAILY SUMAN Stop: 04/27/19 08:59
[2019-03-28] MEDS: DOXYCYCLINE HYCLATE 100 MG in DEXTROSE 5% 100 ML IV SCH ×2 (09:10→21:24)
[2019-03-28] MEDS: LACTOBACILLUS ACIDOPHILUS (FLORANEX) TAB PO SCH (09:10)
[2019-03-28] MEDS ORDERED: cefTRIAXone SODIUM 2,000 MG/70 ML BAG IV SCH (12:00)
[2019-03-28] MEDS: cefTRIAXone SODIUM 2,000 MG in DEXTROSE 5% 50 ML IV SCH (12:47)
--- NOTE | 2019-03-28 13:30 | Pulmonary Consultation ---
Date of Consultation March 28, 2019 Assessment & Plan (1) Acute hypoxemic respiratory failure: The patient has nonspecific groundglass opacities with reticulation on his CT chest. He does have significant occupational exposures and is an active cigarette smoker. Given the acuity of these findings, I am more inclined to think that this is likely an infectious process. This may represent a viral pneumonitis versus an atypical bacterial process. Recommend continuing Rocephin and azithromycin for 7 days total. He does have some hilar adenopathy on the CT chest which is a bit concerning, but not completely surprising given that he likely does have an acute infectious/inflammatory response going on. He will need a follow-up CT chest in approximately 6 to 8 weeks to follow-up on these abnormalities. I did discuss bronchoscopy with him and gave him the option that if he does not improve in the next day or 2, then we should likely proceed with bronchoscopy with bronchoalveolar lavage and possible biopsies. At this time, given that he has not substantially wheezing and given that he does seem to be improving a bit, I would withhold steroids. (2) Multifocal pneumonia: (3) Pneumonitis: (4) Tobacco abuse: History of Present Illness Reason for Consultation: Diffuse groundglass opacities with hypoxemic respiratory failure Requesting Physician: Dr. Anders Attending Physician: Kevon Anders MD History of Present Illness This is a 49-year-old male with no significant past medical history who presented to the hospital due to increasing shortness of breath and coughing. Patient notes that over the last 3 weeks he has been having worsening shortness of breath with nocturnal coughing and wheezing. He did receive antibiotics during this period of time and completed a course of Augmentin and prednisone for 5 days. He notes that he felt better for about 1 day and then subsequently continued to feel short of breath, fatigued and with the cough. He denies any current fevers. He does note that he had some fevers and night sweats subjectively earlier in the course of his illness. He also describes that he lost 7 to 10 pounds of weight unintentionally since being sick. 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 He uses a respirator with fairly significant regularity. He is exposed to large amount of silica dust. He notes that previously his employer obtain yearly chest x-rays to follow for any abnormalities related to occupational exposures. He is also a smoker and smoked for about the last 25 years. He smokes 1 pack/day. He quit smoking about 3 weeks ago which is around the time he became ill. He denies any drugs or alcohol. His girlfriend is at bedside with him in the room. He lives in a trailer and uses oil heating and wood pellet heating. He does have wall units for air conditioning in his trailer. He does not have any pets. He lives alone. His girlfriend does have a couple cats. He has no significant travel or exposures. His girlfriend was sick with an upper respiratory illness for severa l months. He denies any significant family history of lung disease. His parents did have heart disease. He had a CT of his chest performed on admission which demonstrated multifocal groundglass and reticular changes. He has been requiring 2 L of supplemental oxygen. His sats around 90%. He has been afebrile throughout this admission. His procalcitonin was normal. He is currently on ceftriaxone and azithromycin. He did receive a dose of IV Solu-Medrol in the emergency department. He tells me that he feels about 60% better today. Allergies Allergy/AdvReac Type Severity Reaction Status Date / Time bee venom protein (honey bee) Allergy Unknown . Unverified 03/27/19 10:36 Home Medications Home Medications Medication Instructions Recorded Confirmed Type L. gasseri-B. bifidum-B longum 1 cap PO DAILY 03/27/19 03/27/19 History [facility] Patient History Medical History Dyslipidemia Surgical History H/O hand surgery Family History Mother CHF (congestive heart failure) Father Heart disease Social History Preferred Language: Bengali Communication Ability: Effective Seam Stay Stitcher Required: No Beliefs That Will Affect Care: None Current Living Situation: Alone Other Information That Helps Us Care for You: No Feels Safe at Home: Yes Safety Concerns: Feels Safe At This Time Smoking Status: Current every day smoker Tobacco Type: cigarettes ; Cigarettes Per Day: 1 PPD ; Do You Dip or Chew Tobacco: No ; Smoking End Date: ~3 weeks ago ; Second Hand Exposure: No ; Tobacco Cessation Education Requested by Patient: No Hx Alcohol Use: Yes Alcohol type: beer Alcohol type Comment: 15 beers/week Hx Substance Use: No Review of Systems Review of Systems: All systems reviewed & are unremarkable except as noted in HPI & below Physical Exam Constitutional: WD/WN, vitals as above well developed Eyes: PERRL, conjunctivae normal, anicteric sclerae ENMT: external ear and nose normal, oropharynx normal Neck: trachea midline, no thyromegaly Respiratory: Mildly tachypneic. Faint rhonchi bilaterally particularly in the upper lobes. Cardiovascular: RRR, no murmur, no edema Gastrointestinal (Abdomen): normal bowel sounds, soft, nontender, no hepatosplenomegaly Musculoskeletal: no cyanosis or clubbing, extremities motor strength 5/5 Skin: no rashes, warm and dry Neurologic: PERRL, EOMI, accommodation nl, no face palsy, no dysarthria Psychiatric: A+Ox3, euthymic affect Lymphatic: no lymphadenopathy Results & Data Vital Signs (Past 12 Hours) Vital Signs Temp Pulse Pulse Resp BP Pulse Ox 03/28/19 08:22 97.9 F 81 20 121/76 90 03/28/19 07:26 80 03/28/19 03:34 98.6 F 89 22 112/72 90 PG Care Time/CCT Total # of Minutes Spent Total Time Spent with Patient: Total time spent is greater than 50% in coordination of care (as documented) at patient's floor/unit and/or counseling patient:
[2019-03-29 06:43] LABS: Hematocrit (blood only) 42.9 % (42-52); Hemoglobin 14.7 g/dL (14.0-18.0); Mean Corpuscular Hemoglobin 32.2 pg (25-34); Mean Corpuscular Hgb Conc 34.3 g/dL (32-36); Mean Corpuscular Volume 93.9 fL (80-100); Mean Platelet Volume 9.5 fL (7.4-10.4); Platelet Count 327 K/uL (130-400); RDW Standard Deviation 44.4 fL (36.4-46.3); Red Blood Count 4.57 M/uL (4.7-6.1); White Blood Count 12.66 K/uL (4.8-10.8)
[2019-03-29 07:12] LABS: BUN Creatinine Ratio 15.3 (10-20); Calcium 9.5 mg/dl (8.5-10.1); Creatinine Clr Calc Pharmacy 99.2 ml/min; Est GFR (Non-African American) 91.4; Magnesium 2.3 mg/dl (1.8-2.4); Potassium 4.5 mmol/L (3.5-5.1)
[2019-03-29] MEDS: DOXYCYCLINE HYCLATE 100 MG in DEXTROSE 5% 100 ML IV SCH (08:43)
[2019-03-29] MEDS: LACTOBACILLUS ACIDOPHILUS (FLORANEX) TAB PO SCH (08:43)
--- NOTE | 2019-03-29 11:42 | Hospitalist Progress Note ---
Date of Service March 29, 2019 Assessment & Plan (1) Multifocal pneumonia: (2) Hypoxia: Patient presenting from home with reports of increasing cough and shortness of breath for the past 2 weeks, was seen in PCPs office on 03/19 and given a azithromycin and prednisone In the ED, found to be hypoxic on room air at 87%, which improved with oxygen 2 L via nasal cannula Chest CTA shows multifocal multilobar distribution of groundglass densities with associated reticular nodular opacities of the lingula and right middle lobe are suggestive of an atypical infectious or inflammatory pneumonitis. 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 Vail - recommend continuing antibiotics for 7 days total. Patient will also need to follow-up with pulmonology next week, and will need CT follow-up in 6 to 8 weeks. -Mycoplasma and Legionella - pending -Provided counseling for smoking cessation -1 800 quit now smoking cessation line (3) DVT prophylaxis: -SCDs, ambulate Subjective Patient is sitting up in bed, in no acute distress, says that he feels well and he is asking about going home and when he could go back to work. Denies any fevers, chills, chest pain, palpitations, abdominal pain, nausea or vomiting. Says that his breathing is much improved. Leukocytosis improved from 27k to 12k Influenza negative Patient was started on ceftriaxone and Ignacia rosenbaum on admission Review of Systems Review of Systems: All systems reviewed & are unremarkable except as noted in HPI & below Constitutional: no fever and no chills Respiratory: no cough, no dyspnea and no pain on inspiration Cardiovascular: no chest pain, no palpitations and no edema Gastrointestinal: no abdominal pain, no nausea and no vomiting Physical Exam Physical Exam: Constitutional: Middle-aged male, sitting up in the bed, in no acute distress, SPO2 on room air at rest 97% (92% when ambulating) Eyes: PERRL, EOMI, conjunctivae normal, anicteric sclerae ENMT: external ear and nose normal, oropharynx normal Respiratory: normal respiratory effort; no respiratory distress Auscultation: + very faint diffuse rhonchi, no wheezes Cardiovascular: regular, no murmurs noted, vessels: normal peripheral pulses Extremities: no edema Gastrointestinal (Abdomen): normal bowel sounds, soft, nontender, nondistended, no guarding Musculoskeletal: no cyanosis or clubbing, extremities motor strength 5/5, moves all 4 extremities spontaneously Skin: no rashes, warm and dry Neurologic: PERRL, EOMI, accommodation nl, no face palsy, no dysarthria Psychiatric: A+Ox3, euthymic affect Results & Data Vital Signs (Past 12 Hours) Vital Signs Temp Pulse Pulse Resp BP Pulse Ox 03/29/19 09:00 71 03/29/19 07:20 36.9 C 84 20 117/75 93 03/29/19 03:14 36.8 C 78 19 124/77 92 03/28/19 23:54 85 Laboratory Results 03/29/19 03/29/19 Range/Units 06:12 06:12 WBC 12.66 H (4.8-10.8) K/uL RBC 4.57 L (4.7-6.1) M/uL Hgb 14.7 (14.0-18.0) g/dL Hct 42.9 (42-52) % MCV 93.9 (80-100) fL MCH 32.2 (25-34) pg MCHC 34.3 (32-36) g/dL RDW Std Deviation 44.4 (36.4-46.3) fL RDW Coeff of Ravi 13.0 (11.5-14.5) % Plt Count 327 (130-400) K/uL MPV 9.5 (7.4-10.4) fL Sodium 138 (136-145) mmol/L Potassium 4.5 (3.5-5.1) mmol/L Chloride 104 (98-107) mmol/L Carbon Dioxide 28 (21-32) mmol/L Anion Gap 6.0 (3-11) BUN 15 (7-18) mg/dl Creatinine 0.98 (0.6-1.4) mg/dl Est Cr Clr Drug Dosing 99.2 ml/min Est GFR ( Amer) 106.0 Est GFR (Non-Af Amer) 91.4 BUN/Creatinine Ratio 15.3 (10-20) Glucose 92 (70-99) mg/dl Calcium 9.5 (8.5-10.1) mg/dl Magnesium 2.3 (1.8-2.4) mg/dl Medications Administered Current Inpatient Medications Acetaminophen (Tylenol) 650 mg PO Q4H PRN PRN Reason: pain/fever Stop: 04/26/19 17:01 Albuterol (Duoneb) 3 ml NEB Q4R PRN PRN Reason: shortness of breath Stop: 04/26/19 17:01 Doxycycline Hyclate 100 mg/ (Dextrose) 110 mls @ 50 mls/hr IV BID [facility] Stop: 04/03/19 20:59 Last Infusion: 03/29/19 10:55 Dose: Infused Documented by: Ceftriaxone Sodium 2,000 mg/ (Dextrose) 70 mls @ 140 mls/hr IV Q24H [facility]; Protocol Stop: 04/04/19 11:59 Last Infusion: 03/28/19 13:17 Dose: Infused Documented by: Lactobacillus Acidophilus (Floranex) 1 tab PO DAILY [facility] Stop: 04/27/19 08:59 Last Admin: 03/29/19 08:43 Dose: 1 tab Documented by:
[2019-03-29] MEDS: cefTRIAXone SODIUM 2,000 MG in DEXTROSE 5% 50 ML IV SCH (11:54)
--- NOTE | 2019-03-29 13:48 | Pulmonology Progress Note ---
Date of Service March 29, 2019 Assessment & Plan (1) Acute hypoxemic respiratory failure: The patient has nonspecific groundglass opacities with reticulation on his CT chest. He does have significant occupational exposures and is an active cigarette smoker. Given the acuity of these findings, I am more inclined to think that this is likely an infectious process. This may represent a viral pneumonitis versus an atypical bacterial process. Recommend continuing antibiotics for 7 days total. He does have some hilar adenopathy on the CT chest which is a bit concerning, but not completely surprising given that he likely does have an acute infectious/inflammatory response going on. He will need a follow-up CT chest in approximately 6 to 8 weeks to follow-up on these abnormalities. I think it is okay for him to be discharged as long as his pulse oximetry remains above 90% on ambulation. He will need to follow-up with us in the pulmonary clinic in the next week or so. He needs to completely abstain from cigarette smoking. (2) Multifocal pneumonia: (3) Pneumonitis: (4) Tobacco abuse: Subjective Patient feeling much better today. He is on room air and saturating well. He was able to ambulate around the room. I encouraged him to ambulate around the hallways and to have a nurse check his pulse ox. He denies any significant cough or chest pain today. No fevers. Physical Exam Constitutional: WD/WN, vitals as above Respiratory: normal respiratory effort, lungs clear to auscultation Cardiovascular: RRR, no murmur, no edema Neurologic: CN's II-XI intact bilaterally Results & Data Vital Signs (Past 12 Hours) Vital Signs Temp Pulse Pulse Resp BP Pulse Ox 03/29/19 11:51 97.9 F 82 18 125/74 93 03/29/19 09:00 71 03/29/19 07:20 98.4 F 84 20 117/75 93 03/29/19 03:14 98.2 F 78 19 124/77 92 PG Care Time/CCT Total # of Minutes Spent Total Time Spent with Patient: Total time spent is greater than 50% in coordination of care (as documented) at patient's floor/unit and/or counseling patient:
[2019-03-29] MEDS ORDERED: guaiFENesin 600 MG TABCR PO SCH (18:30)
[2019-03-29] MEDS ORDERED: DOXYCYCLINE HYCLATE 100 MG CAP PO SCH (19:00)
--- NOTE | 2019-03-29 19:10 | Discharge Summary ---
Date of Service March 29, 2019 Admission HPI Per Admitting Provider 49-year-old male who presents the ED for evaluation of cough and shortness of breath. Patient reports he started to get sick about 1 week before Mira. On 03/19, patient was seen at his PCPs office and placed on azithromycin and prednisone. He reports a brief improvement in symptoms however they returned. He has had a cough that is been productive for white/clear sputum. He reports feeling short of breath with minimal exertion. No chest pain. Denies fevers and chills. No recent travel or sick contacts. Denies lightheadedness, dizziness, diaphoresis, syncopal events. No abdominal pain, nausea, vomiting, diarrhea. No urinary symptoms. In the ED, labs show WBC 27K and patient was hypoxic on room air at 87% which improved with oxygen 2 L via nasal cannula. CTA chest shows multifocal multilobar distribution of groundglass densities with associated reticular nodular opacities of the lingula and right middle lobe are suggestive of an atypical infectious or inflammatory pneumonitis. Patient was given nebulizer treatment, IV ceftriaxone, IV doxycycline, IVF. Admission Exam Per Admitting Provider Constitutional: WD/WN, vitals as above Eyes: PERRL, conjunctivae normal, anicteric sclerae ENMT: external ear and nose normal, oropharynx normal Respiratory: normal respiratory effort; no respiratory distress Auscultation: + rales (faint, scattered, bilaterally); no wheezes Cardiovascular: Rate/Rhythm: regular rhythm and + tachycardic Vessels: normal peripheral pulses Extremities: no edema Gastrointestinal (Abdomen): normal bowel sounds, soft, nontender, no hepatosplenomegaly Musculoskeletal: no cyanosis or clubbing, extremities motor strength 5/5 Skin: no rashes, warm and dry Neurologic: PERRL, EOMI, accommodation nl, no face palsy, no dysarthria Psychiatric: A+Ox3, euthymic affect Principal Diagnosis Acute hypoxemic respiratory failure secondary to multifocal pneumonia Discharge Exam Constitutional: Middle-aged male, sitting up in the bed, in no acute distress, SPO2 on room air at rest 97% (92% when ambulating) Eyes: PERRL, EOMI, conjunctivae normal, anicteric sclerae ENMT: external ear and nose normal, oropharynx normal Respiratory: normal respiratory effort; no respiratory distress Auscultation: + very faint diffuse rhonchi, no wheezes Cardiovascular: regular, no murmurs noted, vessels: normal peripheral pulses Extremities: no edema Gastrointestinal (Abdomen): normal bowel sounds, soft, nontender, nondistended, no guarding Musculoskeletal: no cyanosis or clubbing, extremities motor strength 5/5, moves all 4 extremities spontaneously Skin: no rashes, warm and dry Neurologic: PERRL, EOMI, accommodation nl, no face palsy, no dysarthria Psychiatric: A+Ox3, euthymic affect Discharge Data Allergies Allergy/AdvReac Type Severity Reaction Status Date / Time bee venom protein (honey bee) Allergy Unknown . Unverified 03/27/19 10:36 Consultations 03/27/19 12:59 ED Decision to Admit Stat 03/27/19 17:02 Consult Pulmonology Routine Ordered Studies 03/27/19 10:13 CT angio chest PE protocol Stat IMPRESSION: 1. Multifocal multilobar distribution of groundglass densities with associated reticular nodular opacities of the lingula and right middle lobe are suggestive of an atypical infectious or inflammatory pneumonitis. 2. No lobar airspace consolidation. 3. Mediastinal and hilar adenopathy, likely reactive. 4. No pleural effusion. 5. No evidence of pulmonary thromboembolic disease. 03/29/19 03/29/19 Range/Units 06:12 06:12 WBC 12.66 H (4.8-10.8) K/uL RBC 4.57 L (4.7-6.1) M/uL Hgb 14.7 (14.0-18.0) g/dL Hct 42.9 (42-52) % MCV 93.9 (80-100) fL MCH 32.2 (25-34) pg MCHC 34.3 (32-36) g/dL RDW Std Deviation 44.4 (36.4-46.3) fL RDW Coeff of Ravi 13.0 (11.5-14.5) % Plt Count 327 (130-400) K/uL MPV 9.5 (7.4-10.4) fL Sodium 138 (136-145) mmol/L Potassium 4.5 (3.5-5.1) mmol/L Chloride 104 (98-107) mmol/L Carbon Dioxide 28 (21-32) mmol/L Anion Gap 6.0 (3-11) BUN 15 (7-18) mg/dl Creatinine 0.98 (0.6-1.4) mg/dl Est Cr Clr Drug Dosing 99.2 ml/min Est GFR ( Amer) 106.0 Est GFR (Non-Af Amer) 91.4 BUN/Creatinine Ratio 15.3 (10-20) Glucose 92 (70-99) mg/dl Calcium 9.5 (8.5-10.1) mg/dl Magnesium 2.3 (1.8-2.4) mg/dl Hospital Course (1) Acute hypoxemic respiratory failure: (2) Multifocal pneumonia: Patient presenting from home with reports of increasing cough and shortness of breath for the past 2 weeks, was seen in PCPs office on 03/19 and given a azithromycin and prednisone In the ED, found to be hypoxic on room air at 87%, which improved with oxygen 2 L via nasal cannula Chest CTA shows multifocal multilobar distribution of groundglass densities with associated reticular nodular opacities of the lingula and right middle lobe are suggestive of an atypical infectious or inflammatory pneumonitis. WBC 27K; stable vitals, normal lactic acid, does not appear septic - Influenza negative - started IV ceftriaxone and doxycycline in the ED, continued while inpt, will discharge on oral doxycycline and cefuroxime - cont. 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 Vail - recommend continuing antibiotics for 7 days total. Patient will also need to follow-up with pulmonology next week, and will need CT follow-up in 6 to 8 weeks. -Mycoplasma and Legionella - pending -Provided counseling for smoking cessation -1 800 quit now smoking cessation line Total Time Total Time Spent Total Time Spent (In Minutes): 40 Total Time Includes: Examination of the Patient, Discharge Planning, Medication Reconciliation and Communication With Other Providers Discharge Plan Discharge Items Patient Disposition: Home - Self-Care Reason For Visit: MULTIFOCAL PNEUMONITIS Discharge Diagnosis: Acute hypoxemic respiratory failure secondary to multifocal pneumonia Activity: Per Instructions section Non-emergency contact: Primary Care Provider and Binder Operator Call non-emergency contact if: you have any medication questions and your symptoms worsen Follow-up/Referrals: Matthew Escoto MD [Primary Care Provider] - Diet: Regular Addtl Attending Provider Instructions: You need to follow-up with your primary care doctor within 1 week. You will also need to follow-up with otolaryngology physician/lung doctor, next week. Their office will contact you about the appointment. You will need a follow up CT of your chest in approximately 6 to 8 weeks. Your otolaryngology physician will schedule this for you. It is crucial that you abstain from smoking. And that you use your spirometer at least once an hour during the day. Recommend to call [employer] now smoking cessation line. Pending Studies at Discharge: No Stand-Alone Forms: [facility] [employer], Work/School Release (Inpt), Smoking Cessation Medications and DC Order Prescriptions: New doxycycline hyclate 100 mg Capsule 100 mg PO BID 4 Days Qty: 8 RF: 0 guaifenesin [Mucinex] 600 mg Tablet Extended Release 12hr 600 mg PO Q12 14 Days Qty: 28 RF: 0 cefuroxime axetil 500 mg tablet 500 mg PO BID 4 Days Qty: 8 RF: 0 Continued Applicasa 1.5 billion cell Capsule 1 cap PO DAILY RF: 0 Discharge Orders: Discharge Order (Routine); Ordered 03/29/19 Ordered By: Kevon Anders Admission Data Admit Date/Time: 03/27/19 13:25 Attending Provider: Kevon Anders Admit Provider: Jovan Oquendo Primary Care Provider: Matthew Escoto Other Providers: Jovan Oquendo ; Edwin Vail Other DC Date/Time DO NOT enter until pt leaves facility: 03/29/19 19:32
[2019-03-31 16:10] LABS: Mycoplasma pneumoniae Ab, IgG <=0.90 (<=0.90); Mycoplasma pneumoniae Ab, IgM 189 U/mL (<770)
== END 2019-03-29 19:32 | disposition home or self-care (01) | DRG 193 ==
LOC: ED 09:38 → 2N 13:25 → SUATTDRO 13:25 → 2N 16:43